=== PATIENT | male | born 1960 | race Caucasian/White ===

== ENCOUNTER 2016-09-19 12:21 | Outpatient (CLI) | payer MEDICARE ==
[~2016-09-19] VITALS: Ht 182.9 cm; Wt 131.8 kg
--- NOTE | ~2016-09-19 | HEMODYNAMI ---
PATIENT:ELIANE GIBSON MEDICAL RECORD: [id number] : 56 LOCATION:DPhanCAT ADMISSION DATE: 09/19/16 Generatedon:09/19/201615:04 Patient name: ELIANE GIBSON Patient #: [id number] : 1960 Date of study: 09/19/2016 Page: Of Hemodynamic Procedure Report Patient Data Patient Demographics Procedure consent was obtained First Name: ELIANE Gender: Male Last Name: ARTHUR : 1960 Middle Initial: A Age: 55 year(s) Patient #: [id number] Race: SSN: [id number] Additional ID: [id number] Contact details Address: [address] [place] [address] State: [place] City: [facility] Zip code: [address] Admission Admission Data Admission Date: 09/19/2016 Admission Time: 12:21 Arrival Date: 09/19/2016 Arrival Time: 14:00 Admit Source: Other Insurance Payor: Medicare Height (in.): 72 BSA: 2.52 (m2) Height (cm.): 182.88 BMI: 40.14 (kg/m2) Weight (lbs.): 296 Weight (kg.): 134.26 Lab Results Lab Result Date: 09/19/2016 Lab Result Time: 0:00 Biochemistry Name Units Result Min Max BUN mg/dl 14 --(--*-)-- 7 18 Creatinine mg/dl 0.9 --(-*--)-- 0.6 1.3 CBC Name Units Result Min Max Hemoglobin g/dl 14.3 --(*---)-- 13.5 17.5 Procedure Procedure Types Cath Procedure Diagnostic Procedure [facility] w/Coronaries FFR/IVUS Intra-Coronary IVUS Initial Miscellaneous Procedures Moderate Sedation up to 15 minutes Procedure Description Procedure Date Procedure Date: 09/19/2016 Procedure Start Time: 14:47 Procedure End Time: 15:01 Procedure Staff Name Function Armani Torres MD Performing Physician Estephania Dominguez RT Scrub Weston Espinoza RN Nurse Makenzie Wren RT Monitor Indication Angina Procedure Data Cath Procedure Fluoroscopy Diagnostic fluoroscopy Total fluoroscopy Time: 2.6 time: 2.6 min min Diagnostic fluoroscopy Total fluoroscopy dose: 826 dose: 826 mGy mGy Contrast Material Contrast Material Type Amount (ml) Isovue 370 77 Entry Location Entry Primary Successful Side Size Upsize Upsize Entry Closure La ccessful Closure Location (Fr) 1 (Fr) 2 (Fr) Remarks Device Remarks Radial Right 6 Fr Mechanical artery Short Compression Estimated blood loss: 5 ml Diagnostic catheters Device Type Used For End Catheter Placement Cordis RBL 4 catheter (NO Multi-vessel CHARGE) Angiography Procedure Complications No complications Procedure Medications Medication Administration Route Dosage Oxygen NC 2 l/min Lidocaine 2% added to field 20 Heparin Flush Bag added to field 2 bags (1000units/500ml NS) 0.9% NaCl I.V. 100 ml/hr Versed I.V. 2 mg Fentanyl I.V. 100 mcg Versed I.V. 2 mg Fentanyl I.V. 100 mcg Versed I.V. 2 mg Fentanyl I.V. 100 mcg Radial Cocktail I.A. 1 syringe (Verapomil 2mg/Nitro 400mcg/Heparin 1500units) Hemodynamics Rest BSA: 2.52 (m2) HGB: 14.3 (g/dl) O2 Consumption: Estimated: 297.02 (ml/min) O2 Co nsumption indexed: Estimated:117.87 (ml/min/m) Heart Rate: 69 (bpm) Pressure Samples Time Site Value (mmHg) Purpose Heart Use Rate(bpm) 14:49 LV 316/130,265 Snapshot 81 Snapshots Pre Cath Intra NCS Post Cath Vital Signs Time Heart Resp SPO2 NIBP Rhythm Pain Sedation Rate (ipm) (%) (mmHg) Status Level (bpm) 14:39:18 66 18 97 127/78(94) NSR 0 (11) 10(A) , No pain 14:43:47 74 13 95 120/72(96) NSR 0 (11) 10(A) , No pain 14:48:13 77 15 96 116/71(88) NSR 0 (11) 10(A) , No pain 14:52:39 82 18 93 114/66(93) NSR 0 (11) 10(A) , No pain 14:57:01 81 18 95 115/69(92) NSR 0 (11) 10(A) , No pain 15:01:26 77 16 94 108/70(93) NSR 0 (11) 10(A) , No pain Medications Time Medication Route Dose Verified Delivered Reason Notes Effectiveness by by 14:39:08 Oxygen NC 2 l/min Armaniclif Ontiveros used for Brian Espinoza RN procedure 14:39:17 Lidocaine 2% added 20ml Armani Lomeli for local to vial Brian Torres MD anesthetic field 14:39:23 Heparin Flush added 2 bags Armani Lomeli used for Bag to Brian Torres MD procedure (1000units/500ml field NS) 14:39:41 0.9% NaCl I.V. 100 Armani Ontiveros Per ml/hr Brian Espinoza RN physician 14:44:20 Versed I.V. 2 mg Armani Ontiveros for sedation Brian Espinoza RN 14:44:27 Fentanyl I.V. 100 mcg Armani Ontiveros for sedation Brian Espinoza RN 14:49:36 Radial Cocktail I.A. 1 Armani Lomeli for (Verapomil syringe Brian Torres MD vasodilation 2mg/Nitro 400mcg/Heparin 1500units) 14:50:38 Versed I.V. 2 mg Armani Ontiveros for sedation Brian Espinoza RN 14:50:42 Fentanyl I.V. 100 mcg Armani Ontiveros for sedation Brian Espinoza RN 14:53:59 Versed I.V. 2 mg Armani Ontiveros for sedation Brian Espinoza RN 14:54:03 Fentanyl I.V. 100 mcg Armani Ontiveros for sedation Brian Espinoza RN Procedure Log Time Note 14:15:31 Weston Espinoza RN sent for patient. Start room use. 14:24:18 Informed consent obtained and on chart 14:24:21 Diagnostic Cath Status : Elective 14:24:43 Indication : Angina 14:25:30 Admit Source: Other 14:25:35 Patient Height : 182.88 inches 14:25:48 Patient Weight : 134.26 lbs 14:26:08 Arrival Date: 09/19/2016 2:00:00 PM 14:26:15 Insurance Payor : Medicare 14:37:27 Lab Result : Hemoglobin 14.3 g/dl 14:37:27 Lab Result : BUN 14 mg/dl 14:37: Lab Result : Creatinine 0.9 mg/dl 14:37:39 Time tracking: Regular hours 14:37:43 Plan of Care:Hemodynamics will remain stable., Cardiac rhythm will remain stable., Comfort level will be maintained., Respiratory function will remain adequate., Patient/ family verbilizes understanding of procedure., Procedure tolerated without complication., Recovers from procedure without complications.. 14:37:50 Patient received from Pre/Post Procedure Room to CCL 2 Alert and oriented. Tansferred to table in Supine position. 14:37:51 Warm blankets applied, and anita hugger turned on for patient comfort. 14:37:51 Correct patient and procedure confirmed by team. 14:37:52 ECG and BP/O2 sat monitors applied to patient. 14:37:52 Vital chart was started 14:37:53 Baseline sample Acquired. 14:38:00 Rhythm: sinus rhythm 14:38:02 Full Disclosure recording started 14:38:28 H&P Date Dictated: 09/17/2016 Within 30 days and on chart., H&P Addendum completed by physician on day of procedure. (MUST COMPLETE FOR ALL OUTPATIENTS). 14:38:29 Pre-procedure instructions explained to patient. 14:38:30 Pre-op teaching completed and patient verbalized understanding. 14:38:31 Family in waiting room. 14:38:32 Patient NPO since Midnight. 14:38:36 Is the patient allergic to Iodine/contrast media? No. 14:38:39 Was the patient premedicated? No 14:38:43 Is patient on blood thinner?No 14:38:45 Patient diabetic? Yes. 14:38:46 If diabetic: On Metformin? Yes 14:38:52 If on Metformin: Last Dose? 09/18/2016 14:39:02 Previous problem with sedation/anesthesia? No ? 14:39:03 Snore? Yes 14:39:04 Sleep apnea? Yes 14:39:05 Deviated septum? No 14:39:06 Opens mouth fully? Yes 14:39:07 Sticks out tongue? Yes 14:39:08 Oxygen 2 l/min NC was given by Weston Espinoza RN; used for procedure; 14:39:17 Lidocaine 2% 20ml vial added to field was given by Armani Torres MD; for local anesthetic; 14:39:23 Heparin Flush Bag (1000units/500ml NS) 2 bags added to field was given by Armani Torres MD; used for procedure; 14:39:41 0.9% NaCl 100 ml/hr I.V. was given by Weston Espinoza RN; Per physician; 14:39:58 Airway obstruction? Yes asthma 14:40:01 Dentures? No ? 14:40:16 Pre procedure: right dorsailis pedis pulse 1+ Palpable, but thready & weak; easily obliterated 14:40:19 Patient pain scale 0/10 ?. 14:40:27 IV patent on arrival in left hand with 0.9% NaCl at [facility]. 14:40:30 Lab results completed and on chart. 14:40:35 Right Radial & Right Groin area was prepped with chlora-prep and draped in sterile fashion 14:40:36 Alarms reviewed by R. N. 14:40:36 Sharps counted by scrub and verified by R.N. 14:43:42 Physician arrived 14:43:43 --------ALL STOP TIME OUT------ 14:43:43 Final Timeout: patient, procedure, and site verified with staff and physician. All members of the team are in agreement. 14:43:46 Right Radial & Right Groin site verified by team. 14:43:48 Physical assessment completed. ASA score P 2 - A patient with mild systemic disease as per Armani Torres MD. 14:43:51 Sedation plan: IV Moderate Sedation Versed, Fentanyl 14:44:09 Use device set Radial Dx 14:44:11 Acist Syringe opened to sterile field. 14:44:11 Medline Cath Pack opened to sterile field. 14:44:12 Bag Decanter opened to sterile field. 14:44:12 Terumo 6Fr Slender Glidesheath opened to sterile field. 14:44:13 St Venkat 260cm J .035 wire opened to sterile field. 14:44:13 Acist Hand Control opened to sterile field. 14:44:14 Acist Manifold opened to sterile field. 14:44:14 Tegaderm 4 x 4 opened to sterile field. 14:44:20 Versed 2 mg I.V. was given by Weston Espinoza RN; for sedation; 14:44:27 Fentanyl 100 mcg I.V. was given by Weston Espinoza RN; for sedation; 14:45:25 Zero performed for pressure channel P1 14:45:41 Zero performed for pressure channel P1 14:46:25 Procedure started. 14:47:28 Local anesthetic to right radial artery with Lidocaine 2% by Armani Torres MD.INITIAL ACCESS ONLY 14:48:01 A 6 Fr Short sheath was inserted into the Right Radial artery 14:49:09 A Twitt2go RBL 4 catheter (NO CHARGE) was advanced over the wire and used for Multi-vessel Angiography. 14:49:36 Radial Cocktail (Verapomil 2mg/Nitro 400mcg/Heparin 1500units) 1 syringe I.A. was given by Armani Torres MD; for vasodilation; 14:49:57 LV hemodynamics recorded. 14:49:58 LV gram done using GREER 14:50:03 Injector settings: Ml/sec: 5, Volume: 15, 14:50:08 EF : 60 % 14:50:10 LCA angiography performed. 14:50:12 Injector settings: Ml/sec: 3, Volume: 6, 14:50:38 Versed 2 mg I.V. was given by Weston Espinoza RN; for sedation; 14:50:42 Fentanyl 100 mcg I.V. was given by Weston Espinoza RN; for sedation; 14:51:35 RCA angiography performed. 14:51:40 Injector settings: Ml/sec: 3, Volume: 6, 14:53:01 Catheter removed. 14:53:20 [place] IVUS Catheter opened to sterile field. 14:53:21 Medtronic Launcher 6Fr AR 2.0 guide catheter opened to sterile field. 14:53:24 Dashbook BasixCompak Inflation Kit opened to sterile field. 14:53:30 [place] J 300cm 0.014 guide wire opened to sterile field. 14:53:34 Catheter removed. 14:53:34 Proceeding to intervention. 14:53:48 6 Fr ar 2 guide catheter was inserted over the wire 14:53:54 whisper wire advanced. 14:53:56 Wire advanced across lesion. 14:53:59 Versed 2 mg I.V. was given by Weston Espinoza RN; for sedation; 14:54:03 Fentanyl 100 mcg I.V. was given by Weston Espinoza RN; for sedation; 14:54:37 IVUS catheter advanced over wire. 14:54:40 IVUS pass to RCA lesion performed. 14:56:26 IVUS catheter removed over wire. 14:56:33 Wire removed. 14:56:34 Guide catheter removed. 14:58:30 Terumo TR Band Large opened to sterile field. 14:58:45 Sheath removed intact; hemostasis achieved with Mechanical Compression to the Right Radial artery. 14:59:06 Procedure ended.(Physican Out) 14:59:31 Fluoroscopy time 02.60 minutes. 14:59:37 Fluoroscopy dose: 826 mGy 14:59:37 Flurop Dose total: 826 14:59:52 Contrast amount:Isovue 370 77ml. 14:59:56 Sharps counted by scrub and verified by R.N. 14:59:59 TR band inflated with 10cc of air. 15:00:01 Insertion/operative site no bleeding no hematoma. 15:00:10 Post right radial artery:stable 15:00:14 Post Procedure Pulses reassessed and unchanged 15:00:17 Post procedure rhythm: unchanged. 15:00:20 Estimated blood loss: 5 ml 15:00:21 Post procedure instruction explained to patient.Patient verbalizes understanding. 15:00:21 Patient needs reinforcement of post procedure teaching. 15:00:30 Procedure type changed to Cath procedure, Diagnostic procedure, LHC, LHC w/Coronaries, FFR/IVUS, Intra-Coronary IVUS Initial, Miscellaneous Procedures, Moderate Sedation up to 15 minutes 15:00:43 Procedure and supply charges have been captured, reviewed, submitted and are correct. 15:00:54 Procedure Complication : No complications 15:00:58 Vital chart was stopped 15:00:58 See physician's report for complete and final results. 15:01:02 Report given to Pre/Post Procedure Room. 15:01:05 Patient transfered to Pre/Post Procedure Room with Stretcher. 15:01:08 Procedure ended. 15:01:08 Full Disclosure recording stopped 15:01:11 End room use (Document Last) Device Usage Item Name Manufacture Quantity Catalog Hospital Part Current Minimal Lot# / Number Charge Number Stock Stock Serial# Code Acist Acist 1 [id number] 008500 [id number] 20 [employer] Medline Cardinal 1 [id number] 690644 56331 671909 5 Cath Pack Health Bag Microtek 1 2002S 784604 96576 318003 5 Decanter [employer] Inc. Terumo 6Fr Terumo 1 [id number] 074472 235450 475239 [address] Ven[address] St Venkat 1 725085 394732 119746 978007 30 260cm J .035 wire Acist Hand Acist 1 56136 307750 856563 401309 5 Control Medical Systems Inc Acist Acist 1 19158 127417 515435 035800 5 Manifold Medical Systems Inc Tegaderm 4 3M 1 1626W 129375 438852 174081 5 x 4 Cordis RBL Cardinal 1 [id number] 977833 290837 5 4 catheter Health (NO CHARGE) [place] 1 [id number] 398498 422168 192393 8 [place] IVUS Catheter Medtronic Medtronic 1 [id number] 360476 48490 294191 1 Launcher 6Fr AR 2.0 guide catheter Merit Merit 1 [id number] 812628 316848 718633 15 [facility] Medical Inflation Kit [place] 1 [id number] 169798 455138 180609 5 Whisper J Vascular 300cm 0.014 guide wire Terumo TR Terumo 1 [id number] 257569 357075 40 Band Large Signature Audit Lorimor Stage Time Signature Unsigned Intra-Procedure 09/19/2016 Makenzie Wren 3:04:53 PM RT(R) Signatures Monitor : Makenzie Wren RT Signature : Date : Time : [facility] [address] [place], [place] [address]
[~2016-09-19 12:21] MED LIST: AMARYL; AMBIEN10 MG PO; AXIRON30 MG/1.5 IM; BENICAR20 MG PO; ENBREL25 MG/0.5 SQ; FOLIC ACID1 MG PO; GLUCOPHAGE1000 MG PO; HYDROCHLOROTH12.5 M1 PO; LEXAPRO20 MG PO; NEURONTIN800 MG PO; NORVASC5 MG PO; OXYCONTIN80 MG PO; PERCOCET 10/3251 TA1 PO; PREDNISONE10 MG PO; PROVENTIL HFA6.7 GM INH; VITAMIN D250000 UNIT PO; XANAX1 MG PO
[2016-09-19 13:40] VITALS: BP 141/66; Ht 182.9 cm; Wt 131.8 kg
[2016-09-19 14:01] LABS: BASOPHILS 0.4 % (0.0-2.0); EOSINOPHILS 2.8 % (0-7); HEMATOCRIT 43.3 % (42.0-54.0); HEMOGLOBIN 14.3 g/dL (13.5-17.5); IMMATURE GRANULOCYTES 0.5 % (0-5); LYMPHOCYTES 23.2 % (15-50); MCH 32.8 pg (26.0-34.0); MCV 99.3 fL (80.0-100.0); MEAN PLATELET VOLUME 11.2 fL (7.4-10.4); MONOCYTES 8.3 % (2-11); NEUTROPHILS 64.8 % (40-80); PLATELET COUNT 160 10x3/uL (130-400); RBC 4.36 10x6/uL (4.20-6.10); RDW 13.5 % (11.5-14.5)
[2016-09-19 14:14] LABS: CALC OSMOLALITY 280 mosm/kg (275-300); CALCIUM 9.5 mg/dL (8.5-10.1); CARBON DIOXIDE 29.8 mmol/L (21.0-32.0); CHLORIDE - SERUM 99 mmol/L (98-107); CREATININE - SERUM 0.9 mg/dL (0.6-1.3); GLUCOSE 198 mg/dL (74-106); SODIUM 137 mmol/L (136-145); UREA NITROGEN 14 mg/dL (7-18); eGFR NON AFRICAN AMERICAN > 90 mL/min (90-120)
--- NOTE | 2016-09-19 16:03 | NUR ---
1520 LYING IN BED RESTING WITH EYES CLOSED. NSR RATE 67 W NO C/O CHEST PAIN. PULSES PALP X 4. R WRIST TR BAND C/D/I WITH NO HEMATOMA OR BLEEDING. AT BEDSIDE.
--- NOTE | 2016-09-19 16:56 | NUR ---
1550 SITTING UP IN BED EATING TURKEY SANDWICH WITH ASSIST FROM . URINATED VIA URINAL. VITALS ALL WNL. 1640 2CC AIR REMOVED FROM R WRIST TR BAND. WILL MONITOR CLOSELY FOR BLEEDING.
--- NOTE | 2016-09-19 17:03 | NUR ---
PIV REMOVED FROM LEFT HAND WITH BANDAID APPLIED. ANOTHER 2CC AIR REMOVED FROM R WRIST TR BAND. UP TO BED TO DRESS WITH ASSIST FROM .
--- NOTE | 2016-09-19 17:22 | NUR ---
TR BAND REMOVED FROM R WRIST WITH TEGADERM AND 2X2 APPLIED TO WRIST. D/C INSTRUCTIONS DISCUSSED WITH PATIENT AND AT BEDSIDE. WHEELED OUT VIA WHEELCHAIR BY CATH TEAM.
--- NOTE | 2016-10-01 10:08 | OP ---
PATIENT NAME: ELIANE GIBSON MEDICAL RECORD: [id number] :56 LOCATION:D.CAT ADMISSION DATE: SURGEON: NINOSKA LEAHY MD DATE OF OPERATION: 09/19/2016 PROCEDURES: 1. Left heart catheterization. 2. Selective coronary angiography. 3. Left ventriculogram. 4. Intravascular ultrasound, RCA. PROCEDURE PERFORMED: After consent was obtained and after detailed explanation of risks, benefits as well as alternative therapies, the patient elected to proceed with angiogram and heart catheterization. The right radial area was prepped and draped in normal sterile fashion. The right radial artery was cannulated via modified Seldinger technique with placement of 5-Yoruba sheath. All catheters exchanged through this sheath. FINDINGS: Left ventriculogram was performed in the standard 30-degree GREER view, reveals good cardiac wall motion throughout all segments. Overall ejection fraction estimated at 55%-60%. SELECTIVE CORONARY ANGIOGRAPHY: 1. Left main is with no significant angiographic disease. 2. Left anterior descending has moderate irregularities, but no flow-limiting stenosis. 3. The left circumflex shows moderate irregularities, but no flow-limiting stenosis. 4. The right coronary artery has a questionable stenosis proximally; however, intravascular ultrasound revealed this is no greater than 20%. OVERALL IMPRESSION: Minimal coronary artery disease is present. No flow-limiting stenosis. Continue medical management of the coronary artery disease and cardiac risk factors. TRANSINT:[id number] Voice Confirmation ID: [id number] DOCUMENT ID: [id number] NINOSKA LEAHY MD at 1008 CC: [id number] DICTATION DATE: 09/19/16 1500 [facility] NURSE SUPERVISOR: 09/19/16 1826 DEP CLI 09/19/16 [facility] [address] [place] [address]
== END 2016-09-19 17:27 | disposition home or self-care (01) ==
LOC: D.CATH 12:21
PROVIDERS: Internal Medicine Interventional Cardiology
DX: I25.10 Atherosclerotic heart disease of native coronary artery without angina pectoris (principal)

== ENCOUNTER 2017-07-23 15:20 | Emergency (ER) | payer MEDICARE ==
[2016-09-19 13:40] VITALS: BMI 39.4
[2017-07-23 17:22] LABS: BASOPHILS 0.2 % (0-2); EOSINOPHILS 1.6 % (0-7); HEMATOCRIT 41.3 % (42.0-54.0); HEMOGLOBIN 13.7 g/dL (13.5-17.5); IMMATURE GRANULOCYTES 0.7 % (0-5); LYMPHOCYTES 24.5 % (15-50); MCH 32.5 pg (26.0-34.0); MCHC 33.2 g/dL (31.0-37.0); MCV 97.9 fL (80.0-100.0); MEAN PLATELET VOLUME 11.1 fL (7.4-10.4); MONOCYTES 8.6 % (2-11); NEUTROPHILS 64.4 % (40-80); PLATELET COUNT 176 10x3/uL (130-400); RBC 4.22 10x6/uL (4.20-6.10); RDW 13.2 % (11.5-14.5)
[2017-07-23 17:38] LABS: ALBUMIN 3.9 g/dL (3.4-5.0); ANION GAP 11.6 mmol/L (8-16); BILIRUBIN - TOTAL 0.27 mg/dL (0.2-1.3); CALCIUM 9.7 mg/dL (8.5-10.1); CREATININE - SERUM 1.3 mg/dL (0.6-1.3); POTASSIUM - SERUM 4.6 mmol/L (3.5-5.1); PROTEIN - SERUM 7.4 g/dL (6.4-8.2)
== END 2017-07-23 20:10 | disposition home or self-care (01) ==
LOC: D.ER 15:20
PROVIDERS: Emergency Medicine
DX: E11.40 Type 2 diabetes mellitus with diabetic neuropathy, unspecified (principal); Z79.4 Long term (current) use of insulin; B35.3 Tinea pedis; L03.115 Cellulitis of right lower limb; I10 Essential (primary) hypertension

== ENCOUNTER 2017-09-26 11:46 | Inpatient (IN) | payer MEDICARE ==
[~2017-09-26] VITALS: Ht 182.9 cm; Wt 120.0 kg
--- NOTE | ~2017-09-26 | CN ---
PATIENT NAME:ELIANE GIBSON MEDICAL RECORD: [id number] : 56 LOCATION:D.MS [id number] ADMIT DATE: 09/26/17 ACCOUNT: [id number] CONSULTING PHYSICIAN: NINOSKA LEAHY MD REFERRING PHYSICIAN: KAYLEN BARAHONA MD DATE OF CONSULTATION: 10/01/2017 CARDIOLOGY CONSULTATION ADMITTING DIAGNOSES: 1. Bacteremia. 2. Recent toe amputation. 3. Diabetic foot ulcer. 4. Diabetes. 5. Hypertension. 6. Chronic obstructive pulmonary disease. 7. Smoking history. 8. Rheumatoid arthritis, on prednisone. 9. Peripheral vascular disease. HISTORY OF PRESENT ILLNESS: This is a gentleman admitted with a diabetic foot ulcer, underwent third toe amputation for possible osteoarthritis, who has persistent bacteremia. He does have a cellulitis who is being treated with antibiotics. We were asked to comment on possible endocarditis. He had an echocardiogram yesterday. Repeat echocardiogram has excellent visualization of all the valves with no evidence of vegetations. PHYSICAL EXAMINATION: GENERAL APPEARANCE: Well-nourished, well-developed, appears stated age. Level of distress, comfortable. PSYCHIATRIC: Mental status, alert, normal affect. Orientation, oriented to time, place and person. EYES: Lids and conjunctiva, noninjected. No discharge, no pallor. ENT: Lips, teeth, gums, normal dentition. Oropharynx, no cyanosis, no pallor. NECK: Carotid arteries, bilateral normal upstroke, no bruits, no thrills. JUGULAR VEINS: No jugular venous pressure or distention. CERVICAL LYMPH NODES: Nontender, nonenlarged. THYROID: Not enlarged. Nontender. No nodules. LUNGS: Respiratory effort, unlabored. CHEST: Normal curvature. No thoracic deformity. No chest wall tenderness. Percussion, resonant. Auscultation, clear. No wheezes, no rales, no rhonchi. CARDIOVASCULAR: Precordial exam, nondisplaced. No heaves or pericardial thrills. Rate and rhythm, regular. Heart sounds, normal S1, normal S2. No S3, no gallop, no rub. Systolic murmur, not heard. Diastolic murmur, not heard. EXTREMITIES: No cyanosis, no edema. Peripheral pulses, full and equal in all extremities, except as noted. No bruits appreciated. ABDOMEN: Soft, nondistended. Normal aorta. No bruit. Nontender. No masses. Liver, nontender, no hepatomegaly. Spleen, nontender, no splenomegaly. MUSCULOSKELETAL: No joint tenderness. No joint swelling. No erythema. NEUROLOGICAL: Normal gait, normal strength, normal tone. SKIN: Warm and dry. OVERALL IMPRESSION: Transthoracic echo with excellent images. No evidence of any valvular abnormalities, all 4 valves are well visualized. I do not think transesophageal echocardiogram will add anything at this point. CONSULT REPORT [id number] ELIANE GIBSON TRANSINT:[id number] Voice Confirmation ID: [id number] DOCUMENT ID: [id number] NINOSKA LEAHY MD at 1202 CC: [id number] DICTATION DATE: 10/01/17 1210 GLAZING MACHINE OPERATOR: 10/01/17 1229 ADM IN [place] [id number] [place] [address]
--- NOTE | ~2017-09-26 | HEMODYNAMI ---
PATIENT:ELIANE GIBSON MEDICAL RECORD: [id number] : 56 LOCATION:D.MS [facility]2 ADMISSION DATE: 09/26/17 Generatedon:10/09/201714:08 Patient name: ELIANE GIBSON Patient #: [id number] : 1960 Date of study: 10/09/2017 Page: Of Hemodynamic Procedure Report Patient Data Patient Demographics Procedure consent was obtained First Name: ELIANE Gender: Male Last Name: ARTHUR : 1960 Middle Initial: A Age: 56 year(s) Patient #: [id number] Race: SSN: [id number] Additional ID: [id number] Contact details Address: [address] [place] [address] State: [place] City: [facility] Zip code: [address] Admission Admission Data Admission Date: 09/26/2017 Admission Time: 11:46 Room #: D.2202 Procedure Procedure Types Cath Procedure Peripheral Cath Diagnostic Procedure Venography Extremity Procedure Description Procedure Date Procedure Date: 10/09/2017 Procedure Start Time: 13:26 Procedure Staff Name Function Abisai Amin MD Performing Physician Elvis Day RT Monitor Ashwini Sawyer RT Scrub Sara Conte RN Nurse Procedure Data Cath Procedure Fluoroscopy Diagnostic fluoroscopy Total fluoroscopy Time: 2.4 time: 2.4 min min Diagnostic fluoroscopy Total fluoroscopy dose: 4.7 dose: 4.7 mGy mGy Contrast Material Contrast Material Type Amount (ml) Isovue 300 610 Entry Location Entry Primary Successful Side Size Upsize Upsize Entry Closure Succes sful Closure Location (Fr) 1 (Fr) 2 (Fr) Remarks Device Remarks Femoral Left 5 Fr artery Diagnostic catheters Device Type Used For End Catheter Placement Merit ULTRA BOLUS FLUSH 5Fr 65CM catheter ([id number]) Procedure Medications Medication Administration Route Dosage Fentanyl I.V. 50 mcg Versed I.V. 2 mg Versed I.V. 2 mg Fentanyl I.V. 50 mcg Hemodynamics Rest Heart Rate: 94 (bpm) Snapshots Pre Cath Intra NCS Post Cath Vital Signs Time Heart Resp SPO2 etCO2 NIBP Rhythm Pain Sedation Rate (ipm) (%) (mmHg) (mmHg) Status Level (bpm) 13:08:50 90 12 90 37 Measuring NSR 0 (11) 10(A) , No pain 13:09:19 92 10 90 35.5 133/74(89) NSR 0 (11) 10(A) , No pain 13:13:37 91 17 90 27.9 120/73(99) NSR 0 (11) 10(A) , No pain 13:17:55 94 7 93 35.4 124/72(88) NSR 0 (11) 9(A) , No pain 13:22:15 94 10 95 21.9 111/62(91) NSR 0 (11) 9(A) , No pain 13:26:29 92 6 91 40 129/68(91) NSR 0 (11) 9(A) , No pain 13:30:51 91 11 93 37 128/68(93) NSR 0 (11) 8(A) , No pain 13:35:09 95 16 93 40.8 126/73(96) NSR 0 (11) 8(A) , No pain 13:39:29 95 16 93 40.8 131/70(85) NSR 0 (11) 8(A) , No pain 13:43:54 92 10 94 40.8 117/65(79) NSR 0 (11) 8(A) , No pain 13:48:10 90 13 93 36.2 131/70(86) NSR 0 (11) 8(A) , No pain 13:52:32 94 17 94 38.5 128/64(85) NSR 0 (11) 8(A) , No pain 13:56:56 91 16 95 34.7 127/61(87) NSR 0 (11) 8(A) , No pain 14:01:16 91 14 95 27.1 137/73(97) NSR 0 (11) 8(A) , No pain 14:05:40 92 15 40.8 130/71(99) NSR 0 (11) 8(A) , No pain Medications Time Medication Route Dose Verified Delivered Reason Notes Effectivene ss by by 13:25:03 Versed I.V. 2 mg Abisai Ruiz for Fully awake @ Eloisa Conte RN sedation 13:36:29 13:25:48 Fentanyl I.V. 50 Abisai Ruiz for Fully awake @ mcg Eloisa Conte RN sedation 13:36:26 13:35:59 Versed I.V. 2 mg Abisai Ruiz for Eloisa Conte RN sedation 13:36:13 Fentanyl I.V. 50 Abisai Ruiz for mcg Eloisa Conte RN sedation Procedure Log Time Note 12:41:01 Elvis Shay RT (R) (CV) sent for patient. Start room use. 12:41:14 Use device set IR Diagnostic 12:41:16 Bag Decanter (2002S) opened to sterile field. 12:41:16 Sterile Angiographic Pack opened to sterile field. 12:41:17 ACIST Manifold (49824) opened to sterile field. 12:41:18 ACIST Hand Control (14466) opened to sterile field. 12:41:19 ACIST Syringe (72117) opened to sterile field. 12:41:28 Time tracking: Regular hours 12:41:32 Plan of Care:Hemodynamics will remain stable., Cardiac rhythm will remain stable., Comfort level will be maintained., Respiratory function will remain adequate., Patient/ family verbilizes understanding of procedure., Procedure tolerated without complication., Recovers from procedure without complications.. 12:41:37 Patient received from Med/Surg to IR Alert and oriented. Tansferred to table in Supine position. 12:41:38 Warm blankets applied, and anita hugger turned on for patient comfort. 12:41:39 Correct patient and procedure confirmed by team. 12:41:41 Signed procedure consent form obtained from patient. 12:41:42 ECG and BP/O2 sat monitors applied to patient. 12:41:44 Full Disclosure recording started 12:41:45 - 12:41:49 H&P Date Dictated: 10/09/2017 Within 30 days and on chart.. 12:41:52 Pre-procedure instructions explained to patient. 12::52 Pre-op teaching completed and patient verbalized understanding. 12:41:54 Family in waiting room. 12:41:56 Patient NPO since Midnight. 12:42:00 Is the patient allergic to Iodine/contrast media? No. 12:42:05 Is patient on blood thinner?No 12:42:07 Patient diabetic? Yes. 12:42:09 If diabetic: On Metformin? Yes 12:42:10 - 12:42:10 ----Pre-sedation anethsthesia assessment.---- 12:42:14 Previous problem with sedation/anesthesia? No ? 12:42:16 Snore? Yes 12:42:18 Sleep apnea? Yes 12:42:20 Deviated septum? No 12:42:22 Opens mouth fully? Yes 12:42:24 Sticks out tongue? Yes 12:42:35 Airway obstruction? Yes asthma 12:42:37 Dentures? No ? 12:53:42 Pre procedure: right dorsailis pedis pulse Other 12:53:48 Pre procedure: left dorsailis pedis pulse Doppler 12:53:52 Pre procedure: right posterior tibial pulse Doppler 12:54:02 Pre procedure: left posterior tibial pulse Doppler 12:54:14 IV patent on arrival in right forearm with 0.9% NaCl at [facility]. 12:54:15 Sharps counted by scrub and verified by R.N. 12:54:16 Alarms reviewed by R. N. 12:54:23 Bilateral groins area was prepped with chlora-prep and draped in steril e fashion 13:07:00 Vital chart was started 13:13:57 Baseline sample Acquired. 13:25:03 Versed 2 mg I.V. was administered by Sara Conte RN; for sedation; 13:25:48 Fentanyl 50 mcg I.V. was administered by Sara Conte RN; for sedation; 13:25:59 Physician arrived 13:26:00 --------ALL STOP TIME OUT------ 13::01 Final Timeout: patient, procedure, and site verified with staff and physician. All members of the team are in agreement. 13:26:03 Bilateral groins site verified by team. 13:26:11 Sedation plan: IV Moderate Sedation Medication:Versed, Fentanyl 13:26:30 Procedure started. 13:26:35 Local anesthetic to left femerol artery with Lidocaine 1% by Abisai Amin MD.INITIAL ACCESS ONLY 13::00 A 5 Fr sheath was inserted into the Left Femoral artery 13::23 Micropuncture VSI 4FR kit opened to sterile field. 13::23 SHEATH 5FR [place] (SWF095) opened to sterile field. 13::24 DOC .035 wire (G38005) opened to sterile field. 13::24 TUBING Contrast Injection High Pressure (IGK614K) opened to sterile field. 13::25 PERCUTANEOUS ENTRY 19GA needle opened to sterile field. 13::27 A Cellay ULTRA BOLUS FLUSH 5Fr 65CM catheter ([id number]) was advanced over the wire and used for . 13:35:59 Versed 2 mg I.V. was administered by Sara Conte RN; for sedation; 13:36:13 Fentanyl 50 mcg I.V. was administered by Sara Conte RN; for sedation; 13:36:26 Effectiveness of Fentanyl delivered @ 13:25:48 is: Fully awake 13:36:29 Effectiveness of Versed delivered @ 13:25:03 is: Fully awake 13:43:37 GLIDE WIRE ANGLE 180cm (TA8383) opened to sterile field. 13:43:45 TORQUE DEVICE PLASTIC .038 ( TD01) opened to sterile field. 13:46:31 GLIDE CATHETER 5FR STRAIGHT 65cm (CG505) opened to sterile field. 13:55:26 ANGIOSEAL-VIP PLUS 6 FR opened to sterile field. 13:56:16 ANGIOSEAL-VIP PLUS 6 FR opened to sterile field. 13:56:23 Procedure ended.(Physican Out) 14:05:15 Fluoroscopy time 02.40 minutes. 14:05:20 Fluoroscopy dose: 4.7 mGy 14:05:20 Flurop Dose total: 4.7 14:05:24 Contrast amount:Isovue 300 610ml. 14:05:26 Sharps counted by scrub and verified by R.N. 14:05:29 Insertion/operative site no bleeding no hematoma. 14:05:33 Post-op/insertion site Left Femoral artery dressed using a 4 x 4 and Tegaderm. 14:05:38 Post left femerol artery:stable 14:05:40 Post Procedure Pulses reassessed and unchanged 14:05:41 Post procedure instruction explained to patient.Patient verbalizes understanding. 14:05:43 Procedure and supply charges have been captured, reviewed, submitted an d are correct. 14:07:29 Report given to Med/Surg. 14:07:34 Patient transfered to Med/Surg with Bed. 14:08:01 Vital chart was stopped Device Usage Item Name Manufacture Quantity Catalog Number Hospital Part Current Ca nimal Lot# / Charge Number Stock Stock Serial# Code Bag Decanter Microtek 1 [id number] 33115 924281 5 () Medical Inc. Sterile Cardinal 1 [id number] 229657 752980 5 Angiographic Health Pack ACIST Manifold Acist 1 24520 448367 675700 662658 5 (47126) Medical Systems Inc ACIST Hand Acist 1 73916 960527 279754 316225 5 Control Medical (53753) Systems Inc ACIST Syringe Acist 1 11837 659649 382856 030616 20 (14501) Medical Systems Inc Micropuncture VSI VASCULAR 1 7266V 677900 440116 5 VSI 4FR kit SOLUTIONS SHEATH 5FR Terumo 1 LVH908 470608 449887 169583 40 [place] (DLP476) DOC .035 wire Cook Medical 1 D43075 209764 663008 5 2216526 (P25649) TUBING Merit 1 ULB765B 209190 922438 467848 5 Contrast Medical Injection High Pressure (EKL922G) PERCUTANEOUS Cook Medical 1 A66411 354296 797402 5 2112702 ENTRY 19GA needle Merit ULTRA Merit 1 [id number] 288898 582062 5 BOLUS FLUSH Medical 5Fr 65CM catheter ([id number]) GLIDE WIRE Terumo 1 OU5473 791506 468574 995542 5 ANGLE 180cm (GP4457) TORQUE DEVICE Nerstrand 1 TD01 346451 364331 657447 5 PLASTIC .038 ( Scientific TD01) GLIDE CATHETER Terumo 1 CG505 599966 106189 5 5FR STRAIGHT 65cm (CG505) ANGIOSEAL-[facility] Venkat 2 891075 210657 807584 5 2455057 PLUS 6 FR Signature Audit [place] Stage Time Signature Unsigned Intra-Procedure 10/09/2017 Elvis 2:07:59 PM [place] RT (R) (CV) Signatures Monitor : Elvis Signature : Shay RT Date : Time : [address] [address]
--- NOTE | ~2017-09-26 | OP ---
PATIENT NAME: ELIANE GIBSON MEDICAL RECORD: [id number] :56 LOCATION:D.MS [facility]2 ADMISSION DATE:09/26/17 SURGEON: REYES TAPIA MD DATE OF OPERATION: 10/14/2017 PREOPERATIVE DIAGNOSIS: Abscess in the right mid thigh. POSTOPERATIVE DIAGNOSIS: Abscess in the right mid thigh. PROCEDURE: Excisional debridement of the abscess to the right mid thigh, 60 cm in total. This included skin, subcutaneous tissue, portions of fat, fascia, muscle and bone. Please note the wound was packed with a 2-inch Kerlix gauze soaked in dilute Betadine. OPERATIVE SUMMARY IN DETAIL: After obtaining the appropriate preoperative orthopedic surgery consent as well as anesthetic consultation, evaluation and clearance, the patient was brought to the operating room and placed on the operating table in the supine position. After adequate general laryngeal mask was administered, the patient's right upper thigh area was prepped and draped in routine sterile fashion. Spinal needle was used to localize the area of purulence given the MRI accordance and indeed it was localized quickly. Incision was taken down through the skin and subcutaneous tissue and through the first layer of fascia just lateral to the sartorius where upon opening the myositic appearing vastus lateralis large area consistent with the measuring on the MRI was found, completely decorticated. Cultures were taken as well as sample of the fluid taken for analysis. The wound at this point was copiously irrigated using pulsatile lavage diet therapist. Combination of curettes, rongeurs as well as scalpel were used to cut away any appearing tissue. At this point, the wound was packed entirely with a roll of 2-inch Kerlix gauze soaked in dilute Betadine. Sterile dressings were applied. The patient was awakened and taken to the recovery room in stable condition. All final needle and sponge counts were correct. TRANSINT:[id number] Voice Confirmation ID: [id number] DOCUMENT ID: [id number] WILLIE FRANCIS, REYES POLO at 1808 CC: [id number] DICTATION DATE: 10/14/17 1526 HAIRSPRING CUTTER: 10/14/17 1600 ADM IN [place] [address] [place] [address]
--- NOTE | ~2017-09-26 | CN ---
PATIENT NAME:ELIANE OCASIO MEDICAL RECORD: [id number] : 56 LOCATION:D.MS [facility]2201 ADMIT DATE: 09/26/17 ACCOUNT: [id number] CONSULTING PHYSICIAN: SHONNA MELVIN MD REFERRING PHYSICIAN: KAYLEN BARAHONA MD DATE OF CONSULTATION: 09/27/2017 CONSULT REQUESTING PHYSICIAN: Christ Mcnally MD REASON FOR CONSULTATION: Pneumonia, leukocytosis. HISTORY OF PRESENT ILLNESS: Mr. Ocasio is a 56-year-old gentleman who was directly admitted from the office with cellulitis of the right foot. The patient is a very poor historian. He also has cough and some shortness of breath. The chest radiograph showed bilateral infiltrate, which is getting worse on the repeat chest radiograph. He is also having a fever of 101.8. REVIEW OF SYSTEMS: As in history of present illness. PAST MEDICAL HISTORY: 1. Rheumatoid arthritis. 2. Asthma. 3. Osteoarthritis. 4. Hypertension. 5. Blind left eye. 6. Anxiety, depression. PAST SURGICAL HISTORY: 1. He had knee surgery times 2. 2. Hip surgery on the right. ALLERGIES: HE IS ALLERGIC TO SULFA AND TRIMETHOPRIM. PRESENT MEDICATIONS: He is on vancomycin IV, Rocephin IV. PERSONAL AND SOCIAL HISTORY: The patient is a nonsmoker, nondrinker. FAMILY HISTORY: Significant for cardiovascular disease. PHYSICAL EXAMINATION: GENERAL: Now, the patient is lying comfortably on the bed. He is not in acute respiratory distress. VITAL SIGNS: The blood pressure is 160/79, pulse is 119, respirations 22, temperature is 97.8, SpO2 is 92% on room air. HEENT: Conjunctivae are pink. Sclerae are not icteric. NECK: Neck is supple. No JVD. CHEST: Bilateral crackles. No wheezing. HEART: Rhythm regular. Normal sound. No murmur. ABDOMEN: Abdomen is soft. Bowel sounds present. No hepatosplenomegaly. RECTAL: Deferred. EXTREMITIES: No cyanosis, no clubbing, no pedal edema. SKIN: The skin is warm. Normal turgor. CENTRAL NERVOUS SYSTEM: The patient is awake and alert. There are no obvious cranial nerve abnormalities. The gait was not tested. SKIN: There is erythema of the right foot. CONSULT REPORT [id number] ELIANE OCASIO LABORATORY DATA: CBC; WBC 28.0, hemoglobin 13.5, hematocrit 39.9, and the platelet count is 233. Chemistry; sodium is 134, potassium 4.1, BUN is 22, creatinine 1.2, serum glucose 320. Lactic acid of 3.2. IMPRESSION: 1. Pneumonia, bilateral, most likely community-acquired pneumonia. 2. Cellulitis of the right foot. 3. Leukocytosis. 4. Asthma without acute exacerbation. 5. Rheumatoid arthritis. 6. Immunosuppressed state secondary to chronic steroid and/or antirheumatic medication. PLAN: 1. Continue antibiotic per Dr. Steward, albuterol/ipratropium nebulizer and add Brovana/budesonide nebulizer. 2. Mucinex DM two tablets b.i.d. 3. Give stress dose of IV steroids. Hold the p.o. prednisone. Follow up labs and chest radiograph. Dr. Mcnally, thank you for involving me in the care of Mr. Ocasio. TRANSINT:[id number] Voice Confirmation ID: [id number] DOCUMENT ID: [id number] SHONNA MELVIN MD at 1340 CC: CHRIST MCNALLY [id number] DICTATION DATE: 09/27/17 1653 TELEPHONE BETTING CLERK: 09/27/17 1731 ADM IN [facility] [address] [id number]
--- NOTE | ~2017-09-26 | EC ---
PATIENT:ELIANE GIBSON DATE OF SERVICE: 09/26/17 SEX: M MEDICAL RECORD: [id number] DATE OF : 56 LOCATION:D.MS [facility] AGE OF PATIENT: 56 ADMISSION DATE: 09/26/17 REFERRING PHYSICIAN: INTERPRETING PHYSICIAN: XENA TURPIN MD ECHOCARDIOGRAM REPORT ECHO CHARGES 4 ECHO COMPLETE CLINICAL DIAGNOSIS: MSSA BACTEREMIA - R/O ENDOCARDITIS ECHOCARDIOGRAPHIC MEASUREMENTS (adult normal given) AC root (d.<3.7cm) 3.1 cm LV Septum d (<1.2 cm> 1.6 cm Valve Excursion 2.0 cm LV Septum (systole) 2.2 cm Left Atria (s.<4.0cm> 3.5 cm LVPW d(<1.2cm) 1.4 cm RV (d.<2.3cm) 2.6 cm LVPW (sytole) 1.8 cm LV diastole(<5.6CM) 5.1 cm MV E-F(>70mm/sec) cm LV systole 3.4 cm LVOT Diameter 1.8 cm MV exc.(>10mm) cm Est.ejection fraction (50-75%) % Pericardial Effusion N DOPPLER: LVIT cm/sec A 129 cm/sec E 133 cm/sec LA cm/sec RVSP 43.4 mmHg LVOT 133 cm/sec AOP1/2T m/s Asc. Ao 200 cm/sec RVOT 88.0 cm/sec RA cm/sec PA 117 cm/sec AV Gradient Peak 16.0 mmHg AV Mean 8.3 mmHg AV Area 1.6 cm MV Gradient Peak 7.3 mmHg MV Mean 2.8 mmHg MV Area cm COMMENTS: Piece Hand: Jc THOMASOE Adjunct Faculty Instructor: 3 Dr. Araya TAPE# PACS DATE OF SERVICE: 09/30/2017 Adequate 2D echo, color flow and spectral Doppler, and M-mode. LVH present. LV internal dimension is normal. Wall motion is normal. EF is greater than or equal to 55%. Aortic valve is tricuspid. No stenosis by Doppler interrogation. The left atrium is normal at 3.5 cm. The mitral valve shows no prolapse. Trace MR. Right-sided chamber size is grossly normal. Trace TR. No obvious vegetation seen in all 4 cardiac valves. TRANSINT:[id number] Voice Confirmation ID: [id number] DOCUMENT ID: [id number] ECHOCARDIOGRAM REPORT [id number] ELIANE GIBSON GREGORY A MD at 1030 CC: [id number] DICTATION DATE: 09/30/17 142 MARKETING DIRECTOR ASSISTED LIVING: 09/30/17 1442 ADM IN [facility] [address] [place] [address]
--- NOTE | ~2017-09-26 | OP ---
PATIENT NAME: ELIANE GIBSON MEDICAL RECORD: [id number] :56 LOCATION:D.MS [facility]2202 ADMISSION DATE:09/26/17 SURGEON: REYES TAPIA MD DATE OF OPERATION: 09/30/2017 PREOPERATIVE DIAGNOSIS: Osteomyelitis of the right third toe MTP joint. POSTOPERATIVE DIAGNOSIS: Osteomyelitis of the right third toe MTP joint. PROCEDURE: Right third toe excision with partial ray resection with excisional debridement. SURGEON: Reyes Tapia MD ANESTHESIA: General. INTRAOPERATIVE COMPLICATIONS: None. SUMMARY OF PATHOLOGIC FINDINGS: The patient's MTP joint on both sides was essentially devoid of hard cancellous bone indicative of osteomyelitis. The infectious portion was cut all the way back to what appeared to be noninfectious portion, copiously irrigated, cultured and then closed. OPERATIVE SUMMARY IN DETAIL: After obtaining the appropriate preoperative orthopedic surgery consent as well as anesthetic consultation, evaluation and clearance, the patient was brought to the operating room and placed on the operating table in supine position. After general laryngeal mask airway was administered, the patient's right lower extremity was prepped and draped in routine sterile fashion. A long dorsal flap incision was created and the basal aspect was transected. Dissection was then carried in a skin retaining fashion down to the MTP joint itself. MTP joint was disarticulated and the distal side of the MCP joint had obvious cellulitis. Cultures were taken at this point where purulence was noted. Substantial irrigation was then followed by taking the ray back to the distal one-third, proximal two-thirds and osteotomizing and good bleeding bone at this point was noted. A combination of curettage, rongeur, and scalpel all nonviable tissue was removed. Further irrigation was then followed by a simple closure with 4-0 Prolene. Sterile dressings were applied. The patient was awakened and taken to recovery room in stable condition. All final needle and sponge counts were correct. TRANSINT:[id number] Voice Confirmation ID: [id number] DOCUMENT ID: [id number] REYES TAPIA MD at 1601 CC: [id number] DICTATION DATE: 10/03/17 0933 ADAPTIVE PHYSICAL EDUCATION TEACHER: 10/03/17 1125 ADM IN [place] [id number] [place] [address]
[2017-09-26 13:07] VITALS: BP 135/72; BP 150/74
[2017-09-26 15:05] LABS: HEMATOCRIT 39.2 % (42.0-54.0); HEMOGLOBIN 12.9 g/dL (13.5-17.5); MCHC 32.9 g/dL (31.0-37.0); MCV 97.3 fL (80.0-100.0); MEAN PLATELET VOLUME 10.3 fL (7.4-10.4); PLATELET COUNT 237 10x3/uL (130-400); RBC 4.03 10x6/uL (4.20-6.10); RDW 13.4 % (11.5-14.5); WBC 23.6 10x3/uL (4.8-10.8)
[2017-09-26 15:17] LABS: ANION GAP 13.8 mmol/L (8-16); CALCIUM 9.8 mg/dL (8.5-10.1); CARBON DIOXIDE 27.2 mmol/L (21.0-32.0); CREATININE - SERUM 1.1 mg/dL (0.6-1.3)
[2017-09-26 16:06] LABS: C-REACTIVE PROTEIN 13.5 mg/dL (0.0-0.9)
[2017-09-26 16:18] VITALS: BP 126/72
[2017-09-26 16:33] LABS: BASOPHILS 1 % (0-2); EOSINOPHILS 1 % (0-7); LYMPHOCYTES 13 % (15-50); NEUTROPHILS 83 % (40-80); PLATELET ESTIMATE NORMAL
[2017-09-26 20:00] VITALS: BP 131/65
[2017-09-27 04:00] VITALS: BP 90/60
[2017-09-27 04:24] LABS: BASOPHILS 0.1 % (0-2); EOSINOPHILS 0.1 % (0-7); HEMATOCRIT 39.9 % (42.0-54.0); HEMOGLOBIN 13.5 g/dL (13.5-17.5); IMMATURE GRANULOCYTES 0.5 % (0-5); LYMPHOCYTES 4.8 % (15-50); MCH 32.9 pg (26.0-34.0); MCHC 33.8 g/dL (31.0-37.0); MCV 97.3 fL (80.0-100.0); MEAN PLATELET VOLUME 10.5 fL (7.4-10.4); MONOCYTES 4.4 % (2-11); NEUTROPHILS 90.1 % (40-80); PLATELET COUNT 233 10x3/uL (130-400); RDW 13.7 % (11.5-14.5)
[2017-09-27 04:43] LABS: ALBUMIN 2.9 g/dL (3.4-5.0); ANION GAP 16.6 mmol/L (8-16); BILIRUBIN - TOTAL 1.25 mg/dL (0.2-1.3); CARBON DIOXIDE 24.5 mmol/L (21.0-32.0); CREATININE - SERUM 1.2 mg/dL (0.6-1.3); POTASSIUM - SERUM 4.1 mmol/L (3.5-5.1); PROTEIN - SERUM 7.3 g/dL (6.4-8.2)
[2017-09-27 07:44] VITALS: BP 116/67
[2017-09-27 09:46] VITALS: BP 116/67
[2017-09-27 11:05] LABS: APPEARANCE HAZY (CLEAR); BACTERIA MODERATE /hpf (NONE SEEN); BILIRUBIN NEGATIVE (NEGATIVE); COLOR DK YELLOW (YELLOW); EPITHELIAL CELLS 0-5 /hpf (0-5); GLUCOSE NEGATIVE (NEGATIVE); KETONE NEGATIVE (NEGATIVE); NITRITE NEGATIVE (NEGATIVE); PROTEIN 2+ mg/dL (NEGATIVE); RED CELLS - URINE 0-5 /hpf (0-5); SPECIFIC GRAVITY 1.015 (1.005-1.020); UROBILINOGEN NORMAL (NORMAL); WHITE CELLS - URINE 25-50 /hpf (0-5)
[2017-09-27 12:21] VITALS: BP 146/67
[2017-09-27 12:45] VITALS: BMI 38.0
[2017-09-27 15:55] VITALS: BP 160/79
[2017-09-27 20:00] VITALS: BP 109/66
[2017-09-28 04:00] VITALS: BP 131/71
[2017-09-28 05:20] LABS: BASOPHILS 0.1 % (0-2); EOSINOPHILS 0 % (0-7); HEMATOCRIT 38.7 % (42.0-54.0); HEMOGLOBIN 12.9 g/dL (13.5-17.5); IMMATURE GRANULOCYTES 5.5 % (0-5); MCH 32.3 pg (26.0-34.0); MCHC 33.3 g/dL (31.0-37.0); MEAN PLATELET VOLUME 10.5 fL (7.4-10.4); MONOCYTES 3.8 % (2-11); NEUTROPHILS 88.6 % (40-80); PLATELET COUNT 202 10x3/uL (130-400); RBC 3.99 10x6/uL (4.20-6.10); RDW 13.9 % (11.5-14.5); WBC 34.3 10x3/uL (4.8-10.8)
[2017-09-28 05:32] LABS: ALBUMIN 2.4 g/dL (3.4-5.0); ANION GAP 16.3 mmol/L (8-16); BILIRUBIN - TOTAL 0.76 mg/dL (0.2-1.3); CARBON DIOXIDE 23.4 mmol/L (21.0-32.0); CREATININE - SERUM 1.5 mg/dL (0.6-1.3); POTASSIUM - SERUM 4.7 mmol/L (3.5-5.1); PROTEIN - SERUM 7.3 g/dL (6.4-8.2); VANCOMYCIN - TROUGH 22.2 ug/mL (10.0-20.0)
[2017-09-28 08:15] VITALS: BP 108/71
[2017-09-28 13:04] VITALS: BP 110/70
[2017-09-28 15:58] VITALS: BP 110/68
[2017-09-28 21:57] VITALS: BP 96/60
[2017-09-29 00:57] VITALS: BP 101/68
[2017-09-29 05:44] LABS: BASOPHILS 0.1 % (0-2); EOSINOPHILS 0 % (0-7); HEMATOCRIT 35.2 % (42.0-54.0); HEMOGLOBIN 11.7 g/dL (13.5-17.5); IMMATURE GRANULOCYTES 1.1 % (0-5); LYMPHOCYTES 3.1 % (15-50); MCH 32.1 pg (26.0-34.0); MCHC 33.2 g/dL (31.0-37.0); MCV 96.7 fL (80.0-100.0); MEAN PLATELET VOLUME 10.8 fL (7.4-10.4); MONOCYTES 4.4 % (2-11); NEUTROPHILS 91.3 % (40-80); PLATELET COUNT 220 10x3/uL (130-400); RBC 3.64 10x6/uL (4.20-6.10); RDW 14.1 % (11.5-14.5); WBC 35.5 10x3/uL (4.8-10.8)
[2017-09-29 06:03] LABS: ALBUMIN 2.3 g/dL (3.4-5.0); BILIRUBIN - TOTAL 0.33 mg/dL (0.2-1.3); CARBON DIOXIDE 24.9 mmol/L (21.0-32.0); CREATININE - SERUM 1.5 mg/dL (0.6-1.3); PROTEIN - SERUM 7.1 g/dL (6.4-8.2)
[2017-09-29 06:12] LABS: POTASSIUM - SERUM 3.9 mmol/L (3.5-5.1)
[2017-09-29 09:16] VITALS: BP 97/61
[2017-09-29 11:28] VITALS: Ht 182.9 cm; Wt 120.0 kg
[2017-09-29 12:08] VITALS: BP 99/66
[2017-09-29 16:07] VITALS: BP 100/64
[2017-09-29 23:18] VITALS: BP 105/54
[2017-09-30 04:00] VITALS: BP 111/57
[2017-09-30 05:26] LABS: BASOPHILS 0 % (0-2); EOSINOPHILS 0 % (0-7); HEMATOCRIT 33.1 % (42.0-54.0); HEMOGLOBIN 10.6 g/dL (13.5-17.5); IMMATURE GRANULOCYTES 1.2 % (0-5); LYMPHOCYTES 4.5 % (15-50); MCH 31.5 pg (26.0-34.0); MCV 98.5 fL (80.0-100.0); MEAN PLATELET VOLUME 11.4 fL (7.4-10.4); NEUTROPHILS 88.3 % (40-80); PLATELET COUNT 214 10x3/uL (130-400); RBC 3.36 10x6/uL (4.20-6.10); RDW 14.6 % (11.5-14.5); WBC 30.4 10x3/uL (4.8-10.8)
[2017-09-30 05:45] LABS: ALBUMIN 2.1 g/dL (3.4-5.0); BILIRUBIN - TOTAL 0.22 mg/dL (0.2-1.3); CALCIUM 8.6 mg/dL (8.5-10.1); CARBON DIOXIDE 23.3 mmol/L (21.0-32.0); CREATININE - SERUM 1.6 mg/dL (0.6-1.3); POTASSIUM - SERUM 4.3 mmol/L (3.5-5.1); PROTEIN - SERUM 6.5 g/dL (6.4-8.2)
[2017-09-30 08:25] VITALS: BP 93/66
[2017-09-30 14:08] VITALS: BP 110/68
[2017-09-30 15:17] VITALS: BP 115/60
[2017-09-30 20:00] VITALS: BP 128/75
[2017-10-01 04:00] VITALS: BP 145/75
[2017-10-01 04:30] LABS: BASOPHILS 0.1 % (0-2); EOSINOPHILS 0.4 % (0-7); HEMATOCRIT 36.8 % (42.0-54.0); HEMOGLOBIN 11.8 g/dL (13.5-17.5); IMMATURE GRANULOCYTES 4.3 % (0-5); LYMPHOCYTES 10.6 % (15-50); MCH 31.8 pg (26.0-34.0); MCHC 32.1 g/dL (31.0-37.0); MCV 99.2 fL (80.0-100.0); MEAN PLATELET VOLUME 10.9 fL (7.4-10.4); MONOCYTES 7.4 % (2-11); NEUTROPHILS 77.2 % (40-80); PLATELET COUNT 233 10x3/uL (130-400); RBC 3.71 10x6/uL (4.20-6.10); RDW 14.5 % (11.5-14.5)
[2017-10-01 04:39] LABS: WBC 17.5 10x3/uL (4.8-10.8)
[2017-10-01 05:02] LABS: ALBUMIN 2.4 g/dL (3.4-5.0); ANION GAP 13.7 mmol/L (8-16); BILIRUBIN - TOTAL 0.4 mg/dL (0.2-1.3); CALCIUM 8.4 mg/dL (8.5-10.1); CREATININE - SERUM 1.2 mg/dL (0.6-1.3); POTASSIUM - SERUM 3.7 mmol/L (3.5-5.1)
[2017-10-01 09:39] VITALS: BP 129/71
[2017-10-01 12:02] VITALS: BP 147/86
[2017-10-01 16:17] VITALS: BP 138/80
[2017-10-01 20:00] VITALS: BP 140/71
[2017-10-02 04:00] VITALS: BP 143/69
[2017-10-02 08:08] VITALS: BP 131/74
[2017-10-02 12:53] VITALS: BP 141/66
[2017-10-02 15:54] VITALS: BP 124/59
[2017-10-02 20:00] VITALS: BP 120/63
[2017-10-03] VITALS: BP 116/69
[2017-10-03 04:00] VITALS: BP 139/85
[2017-10-03 04:56] LABS: BASOPHILS 0.5 % (0-2); EOSINOPHILS 1.4 % (0-7); HEMATOCRIT 36.6 % (42.0-54.0); HEMOGLOBIN 12.1 g/dL (13.5-17.5); IMMATURE GRANULOCYTES 12.7 % (0-5); LYMPHOCYTES 13.9 % (15-50); MCH 31.9 pg (26.0-34.0); MCHC 33.1 g/dL (31.0-37.0); MCV 96.6 fL (80.0-100.0); MEAN PLATELET VOLUME 10.9 fL (7.4-10.4); MONOCYTES 8.5 % (2-11); PLATELET COUNT 352 10x3/uL (130-400); RBC 3.79 10x6/uL (4.20-6.10); RDW 14.3 % (11.5-14.5); WBC 25.9 10x3/uL (4.8-10.8)
[2017-10-03 04:58] LABS: CALC OSMOLALITY 282 mosm/kg (275-300); CALCIUM 8.8 mg/dL (8.5-10.1); CARBON DIOXIDE 26.2 mmol/L (21.0-32.0); CHLORIDE - SERUM 102 mmol/L (98-107); CREATININE - SERUM 0.9 mg/dL (0.6-1.3); POTASSIUM - SERUM 3.9 mmol/L (3.5-5.1); SODIUM 138 mmol/L (136-145); UREA NITROGEN 31 mg/dL (7-18); eGFR NON AFRICAN AMERICAN > 90 mL/min (90-120)
[2017-10-03 05:04] LABS: GLUCOSE 92 mg/dL (74-106)
[2017-10-03 07:55] VITALS: BP 131/54
[2017-10-03 12:30] VITALS: BP 110/62
[2017-10-03 15:46] VITALS: BP 128/52
[2017-10-03 20:00] VITALS: BP 116/71
[2017-10-04] VITALS: BP 139/72
[2017-10-04 04:00] VITALS: BP 126/67
[2017-10-04 04:28] LABS: BASOPHILS 0.7 % (0-2); EOSINOPHILS 1.9 % (0-7); HEMATOCRIT 36.9 % (42.0-54.0); IMMATURE GRANULOCYTES 13.5 % (0-5); LYMPHOCYTES 13.7 % (15-50); MCH 31.3 pg (26.0-34.0); MCHC 32.5 g/dL (31.0-37.0); MCV 96.1 fL (80.0-100.0); MEAN PLATELET VOLUME 10.7 fL (7.4-10.4); MONOCYTES 9.3 % (2-11); NEUTROPHILS 60.9 % (40-80); PLATELET COUNT 423 10x3/uL (130-400); RBC 3.84 10x6/uL (4.20-6.10); RDW 14.3 % (11.5-14.5); WBC 22.2 10x3/uL (4.8-10.8)
[2017-10-04 04:32] LABS: CALC OSMOLALITY 282 mosm/kg (275-300); CALCIUM 9.4 mg/dL (8.5-10.1); CARBON DIOXIDE 24.7 mmol/L (21.0-32.0); CHLORIDE - SERUM 101 mmol/L (98-107); CREATININE - SERUM 0.9 mg/dL (0.6-1.3); GLUCOSE 94 mg/dL (74-106); POTASSIUM - SERUM 4.1 mmol/L (3.5-5.1); SODIUM 138 mmol/L (136-145); UREA NITROGEN 31 mg/dL (7-18); eGFR NON AFRICAN AMERICAN > 90 mL/min (90-120)
[2017-10-04 08:08] VITALS: BP 130/58
[2017-10-04 12:57] VITALS: BP 130/62
[2017-10-04 16:37] VITALS: BP 127/65
[2017-10-04 22:00] VITALS: BP 124/69
[2017-10-05 00:32] VITALS: BP 144/80
[2017-10-05 04:00] VITALS: BP 114/75
[2017-10-05 06:31] LABS: BASOPHILS 0.3 % (0-2); EOSINOPHILS 1.7 % (0-7); HEMATOCRIT 37.5 % (42.0-54.0); HEMOGLOBIN 12.1 g/dL (13.5-17.5); IMMATURE GRANULOCYTES 9.8 % (0-5); LYMPHOCYTES 16.3 % (15-50); MCH 31.5 pg (26.0-34.0); MCHC 32.3 g/dL (31.0-37.0); MCV 97.7 fL (80.0-100.0); MEAN PLATELET VOLUME 10.3 fL (7.4-10.4); NEUTROPHILS 63.9 % (40-80); PLATELET COUNT 422 10x3/uL (130-400); RBC 3.84 10x6/uL (4.20-6.10); RDW 14.4 % (11.5-14.5)
[2017-10-05 06:48] LABS: CALC OSMOLALITY 277 mosm/kg (275-300); CALCIUM 9.3 mg/dL (8.5-10.1); CARBON DIOXIDE 28.4 mmol/L (21.0-32.0); CHLORIDE - SERUM 98 mmol/L (98-107); GLUCOSE 104 mg/dL (74-106); POTASSIUM - SERUM 4.1 mmol/L (3.5-5.1); SODIUM 135 mmol/L (136-145); UREA NITROGEN 34 mg/dL (7-18); eGFR NON AFRICAN AMERICAN 81 mL/min (90-120)
[2017-10-05 08:03] VITALS: BP 143/81
[2017-10-05 12:16] VITALS: BP 136/73
[2017-10-05 16:14] VITALS: BP 143/82
[2017-10-05 20:00] VITALS: BP 158/75
[2017-10-06] VITALS: BP 124/66
[2017-10-06 04:00] VITALS: BP 145/73
[2017-10-06 04:15] LABS: BASOPHILS 0.2 % (0-2); EOSINOPHILS 0.8 % (0-7); HEMATOCRIT 38.8 % (42.0-54.0); HEMOGLOBIN 12.6 g/dL (13.5-17.5); IMMATURE GRANULOCYTES 5.8 % (0-5); LYMPHOCYTES 15.9 % (15-50); MCH 31.9 pg (26.0-34.0); MCHC 32.5 g/dL (31.0-37.0); MCV 98.2 fL (80.0-100.0); MEAN PLATELET VOLUME 10.4 fL (7.4-10.4); MONOCYTES 6.7 % (2-11); NEUTROPHILS 70.6 % (40-80); PLATELET COUNT 450 10x3/uL (130-400); RBC 3.95 10x6/uL (4.20-6.10); RDW 14.1 % (11.5-14.5); WBC 23.2 10x3/uL (4.8-10.8)
[2017-10-06 04:30] LABS: CALCIUM 9.3 mg/dL (8.5-10.1); CARBON DIOXIDE 29.8 mmol/L (21.0-32.0); CREATININE - SERUM 1.1 mg/dL (0.6-1.3); POTASSIUM - SERUM 3.8 mmol/L (3.5-5.1)
[2017-10-06 08:06] VITALS: BP 102/79
[2017-10-06 12:12] VITALS: BP 128/71
[2017-10-06 16:27] VITALS: BP 161/79
[2017-10-06 20:00] VITALS: BP 1536/79
[2017-10-07] VITALS: BP 143/63
[2017-10-07 04:57] LABS: BASOPHILS 0.1 % (0-2); EOSINOPHILS 1.3 % (0-7); HEMATOCRIT 37.8 % (42.0-54.0); HEMOGLOBIN 12.2 g/dL (13.5-17.5); IMMATURE GRANULOCYTES 4.8 % (0-5); LYMPHOCYTES 19.2 % (15-50); MCH 31.4 pg (26.0-34.0); MCHC 32.3 g/dL (31.0-37.0); MCV 97.4 fL (80.0-100.0); MEAN PLATELET VOLUME 10.4 fL (7.4-10.4); MONOCYTES 8.2 % (2-11); NEUTROPHILS 66.4 % (40-80); PLATELET COUNT 408 10x3/uL (130-400); RBC 3.88 10x6/uL (4.20-6.10); RDW 14.2 % (11.5-14.5)
[2017-10-07 05:06] LABS: WBC 16.4 10x3/uL (4.8-10.8)
[2017-10-07 05:07] LABS: CALC OSMOLALITY 281 mosm/kg (275-300); CALCIUM 8.9 mg/dL (8.5-10.1); CARBON DIOXIDE 28.3 mmol/L (21.0-32.0); CHLORIDE - SERUM 100 mmol/L (98-107); GLUCOSE 119 mg/dL (74-106); POTASSIUM - SERUM 3.9 mmol/L (3.5-5.1); SODIUM 137 mmol/L (136-145); UREA NITROGEN 31 mg/dL (7-18); eGFR NON AFRICAN AMERICAN 81 mL/min (90-120)
[2017-10-07 06:00] VITALS: BP 124/73
[2017-10-07 08:45] VITALS: BP 134/80
[2017-10-07 11:40] LABS: MACROPHAGES BF 2 %; NEUT - BF 46 %
[2017-10-07 13:11] VITALS: BP 166/77
[2017-10-07 16:44] VITALS: BP 148/79
[2017-10-07 20:00] VITALS: BP 146/83
[2017-10-08 04:00] VITALS: BP 118/81
[2017-10-08 08:55] VITALS: BP 141/76
[2017-10-08 11:04] LABS: BASOPHILS 0.1 % (0-2); EOSINOPHILS 0.7 % (0-7); HEMATOCRIT 38.9 % (42.0-54.0); HEMOGLOBIN 12.6 g/dL (13.5-17.5); IMMATURE GRANULOCYTES 2.4 % (0-5); LYMPHOCYTES 16.7 % (15-50); MCH 31.8 pg (26.0-34.0); MCHC 32.4 g/dL (31.0-37.0); MCV 98.2 fL (80.0-100.0); MEAN PLATELET VOLUME 10.2 fL (7.4-10.4); MONOCYTES 8.5 % (2-11); NEUTROPHILS 71.6 % (40-80); PLATELET COUNT 372 10x3/uL (130-400); RBC 3.96 10x6/uL (4.20-6.10); RDW 13.9 % (11.5-14.5)
[2017-10-08 11:43] LABS: ALBUMIN 2.6 g/dL (3.4-5.0); ALKALINE PHOSPHATASE 74 U/L (46-116); ALT (SGPT) 25 U/L (10-68); BILIRUBIN - TOTAL 0.49 mg/dL (0.2-1.3); CARBON DIOXIDE 27.1 mmol/L (21.0-32.0); CHLORIDE - SERUM 98 mmol/L (98-107); POTASSIUM - SERUM 3.9 mmol/L (3.5-5.1); PROTEIN - SERUM 7.8 g/dL (6.4-8.2); SODIUM 134 mmol/L (136-145); eGFR NON AFRICAN AMERICAN 81 mL/min (90-120)
[2017-10-08 11:47] LABS: CALC OSMOLALITY 281 mosm/kg (275-300); GLUCOSE 283 mg/dL (74-106); UREA NITROGEN 23 mg/dL (7-18)
[2017-10-08 13:05] VITALS: BP 160/76
[2017-10-08 16:00] VITALS: BP 147/75
[2017-10-08] MEDS ORDERED: VALIUM10 MG PO (19:07)
[2017-10-08 20:00] VITALS: BP 136/70
[2017-10-09] VITALS (13 sets, daily range): BP systolic 88–162; BP diastolic 54–89
[2017-10-09 05:10] LABS: BASOPHILS 0.1 % (0-2); EOSINOPHILS 1.1 % (0-7); HEMATOCRIT 37.4 % (42.0-54.0); HEMOGLOBIN 11.9 g/dL (13.5-17.5); LYMPHOCYTES 22.2 % (15-50); MCH 31.2 pg (26.0-34.0); MCHC 31.8 g/dL (31.0-37.0); MCV 97.9 fL (80.0-100.0); MEAN PLATELET VOLUME 10.6 fL (7.4-10.4); MONOCYTES 10.5 % (2-11); NEUTROPHILS 64.1 % (40-80); PLATELET COUNT 348 10x3/uL (130-400); RBC 3.82 10x6/uL (4.20-6.10); WBC 14.8 10x3/uL (4.8-10.8)
[2017-10-09 05:41] LABS: ALBUMIN 2.3 g/dL (3.4-5.0); ALKALINE PHOSPHATASE 60 U/L (46-116); ALT (SGPT) 19 U/L (10-68); CALCIUM 8.8 mg/dL (8.5-10.1); CARBON DIOXIDE 25.7 mmol/L (21.0-32.0); CHLORIDE - SERUM 102 mmol/L (98-107); CREATININE - SERUM 0.9 mg/dL (0.6-1.3); POTASSIUM - SERUM 3.7 mmol/L (3.5-5.1); PROTEIN - SERUM 6.9 g/dL (6.4-8.2); SODIUM 138 mmol/L (136-145); UREA NITROGEN 21 mg/dL (7-18); eGFR NON AFRICAN AMERICAN > 90 mL/min (90-120)
[2017-10-09 05:45] LABS: CALC OSMOLALITY 278 mosm/kg (275-300); GLUCOSE 97 mg/dL (74-106)
[2017-10-09 09:16] LABS: INR 1.06 (0.85-1.17); PROTIME 13.4 SECONDS (11.6-15.0)
[2017-10-10] VITALS (7 sets, daily range): BP systolic 120–169; BP diastolic 62–85
[2017-10-10 05:02] LABS: BASOPHILS 0.1 % (0-2); EOSINOPHILS 1.2 % (0-7); HEMATOCRIT 36.4 % (42.0-54.0); HEMOGLOBIN 11.3 g/dL (13.5-17.5); IMMATURE GRANULOCYTES 1.5 % (0-5); LYMPHOCYTES 25.7 % (15-50); MCH 30.5 pg (26.0-34.0); MCV 98.4 fL (80.0-100.0); MEAN PLATELET VOLUME 10.5 fL (7.4-10.4); MONOCYTES 9.8 % (2-11); NEUTROPHILS 61.7 % (40-80); PLATELET COUNT 318 10x3/uL (130-400); WBC 12.9 10x3/uL (4.8-10.8)
[2017-10-10 05:15] LABS: ALBUMIN 2.3 g/dL (3.4-5.0); ALKALINE PHOSPHATASE 57 U/L (46-116); ALT (SGPT) 17 U/L (10-68); CALC OSMOLALITY 274 mosm/kg (275-300); CALCIUM 8.8 mg/dL (8.5-10.1); CARBON DIOXIDE 26.7 mmol/L (21.0-32.0); CHLORIDE - SERUM 101 mmol/L (98-107); CREATININE - SERUM 0.9 mg/dL (0.6-1.3); POTASSIUM - SERUM 3.9 mmol/L (3.5-5.1); PROTEIN - SERUM 7.2 g/dL (6.4-8.2); SODIUM 137 mmol/L (136-145); UREA NITROGEN 21 mg/dL (7-18); eGFR NON AFRICAN AMERICAN > 90 mL/min (90-120)
[2017-10-10 05:28] LABS: GLUCOSE 61 mg/dL (74-106)
[2017-10-11 04:00] VITALS: BP 127/79
[2017-10-11 05:48] LABS: BASOPHILS 0.2 % (0-2); EOSINOPHILS 1.2 % (0-7); HEMATOCRIT 35.3 % (42.0-54.0); HEMOGLOBIN 11.4 g/dL (13.5-17.5); IMMATURE GRANULOCYTES 1.6 % (0-5); LYMPHOCYTES 27.1 % (15-50); MCH 31.4 pg (26.0-34.0); MCHC 32.3 g/dL (31.0-37.0); MCV 97.2 fL (80.0-100.0); MEAN PLATELET VOLUME 10.6 fL (7.4-10.4); MONOCYTES 11.6 % (2-11); NEUTROPHILS 58.3 % (40-80); PLATELET COUNT 279 10x3/uL (130-400); RBC 3.63 10x6/uL (4.20-6.10); RDW 13.9 % (11.5-14.5); WBC 12.3 10x3/uL (4.8-10.8)
[2017-10-11 06:04] LABS: ALBUMIN 2.4 g/dL (3.4-5.0); ALKALINE PHOSPHATASE 66 U/L (46-116); ALT (SGPT) 17 U/L (10-68); BILIRUBIN - TOTAL 0.41 mg/dL (0.2-1.3); CALC OSMOLALITY 273 mosm/kg (275-300); CALCIUM 8.7 mg/dL (8.5-10.1); CHLORIDE - SERUM 100 mmol/L (98-107); CREATININE - SERUM 0.9 mg/dL (0.6-1.3); POTASSIUM - SERUM 3.8 mmol/L (3.5-5.1); PROTEIN - SERUM 7.4 g/dL (6.4-8.2); SODIUM 135 mmol/L (136-145); UREA NITROGEN 20 mg/dL (7-18); eGFR NON AFRICAN AMERICAN > 90 mL/min (90-120)
[2017-10-11 06:13] LABS: GLUCOSE 114 mg/dL (74-106)
[2017-10-11 08:04] VITALS: BP 143/75
[2017-10-11 12:14] VITALS: BP 148/80
[2017-10-11 16:16] VITALS: BP 116/63
[2017-10-11 20:00] VITALS: BP 123/76
[2017-10-11 23:30] VITALS: BP 143/75
[2017-10-12 04:00] VITALS: BP 144/88
[2017-10-12 04:53] LABS: BASOPHILS 0.2 % (0-2); EOSINOPHILS 1.2 % (0-7); HEMATOCRIT 36.1 % (42.0-54.0); HEMOGLOBIN 11.5 g/dL (13.5-17.5); IMMATURE GRANULOCYTES 1.3 % (0-5); LYMPHOCYTES 24.8 % (15-50); MCH 30.9 pg (26.0-34.0); MCHC 31.9 g/dL (31.0-37.0); MEAN PLATELET VOLUME 10.9 fL (7.4-10.4); MONOCYTES 10.3 % (2-11); NEUTROPHILS 62.2 % (40-80); PLATELET COUNT 274 10x3/uL (130-400); RBC 3.72 10x6/uL (4.20-6.10); RDW 13.6 % (11.5-14.5); WBC 13.3 10x3/uL (4.8-10.8)
[2017-10-12 05:14] LABS: ALBUMIN 2.5 g/dL (3.4-5.0); ALKALINE PHOSPHATASE 69 U/L (46-116); ALT (SGPT) 17 U/L (10-68); BILIRUBIN - TOTAL 0.39 mg/dL (0.2-1.3); CALC OSMOLALITY 272 mosm/kg (275-300); CHLORIDE - SERUM 100 mmol/L (98-107); CREATININE - SERUM 0.9 mg/dL (0.6-1.3); GLUCOSE 104 mg/dL (74-106); PROTEIN - SERUM 7.5 g/dL (6.4-8.2); SODIUM 135 mmol/L (136-145); UREA NITROGEN 22 mg/dL (7-18); eGFR NON AFRICAN AMERICAN > 90 mL/min (90-120)
[2017-10-12 10:56] VITALS: BP 150/75
[2017-10-12 15:03] VITALS: BP 148/70
[2017-10-12 16:52] VITALS: BP 123/66
[2017-10-12 20:00] VITALS: BP 138/75
[2017-10-13] VITALS: BP 127/56
[2017-10-13 04:00] VITALS: BP 127/62
[2017-10-13 06:14] LABS: BASOPHILS 0.1 % (0-2); EOSINOPHILS 1.9 % (0-7); HEMATOCRIT 32.9 % (42.0-54.0); HEMOGLOBIN 10.3 g/dL (13.5-17.5); IMMATURE GRANULOCYTES 0.9 % (0-5); LYMPHOCYTES 23.9 % (15-50); MCH 30.5 pg (26.0-34.0); MCHC 31.3 g/dL (31.0-37.0); MCV 97.3 fL (80.0-100.0); MEAN PLATELET VOLUME 10.9 fL (7.4-10.4); MONOCYTES 10.8 % (2-11); NEUTROPHILS 62.4 % (40-80); PLATELET COUNT 261 10x3/uL (130-400); RBC 3.38 10x6/uL (4.20-6.10); RDW 13.5 % (11.5-14.5); WBC 10.8 10x3/uL (4.8-10.8)
[2017-10-13 06:41] LABS: ALBUMIN 2.3 g/dL (3.4-5.0); ALKALINE PHOSPHATASE 72 U/L (46-116); ALT (SGPT) 14 U/L (10-68); BILIRUBIN - TOTAL 0.27 mg/dL (0.2-1.3); CALC OSMOLALITY 274 mosm/kg (275-300); CALCIUM 8.8 mg/dL (8.5-10.1); CHLORIDE - SERUM 101 mmol/L (98-107); CREATININE - SERUM 0.9 mg/dL (0.6-1.3); GLUCOSE 123 mg/dL (74-106); POTASSIUM - SERUM 4.1 mmol/L (3.5-5.1); PROTEIN - SERUM 7.1 g/dL (6.4-8.2); SODIUM 136 mmol/L (136-145); UREA NITROGEN 19 mg/dL (7-18); eGFR NON AFRICAN AMERICAN > 90 mL/min (90-120)
[2017-10-13 08:07] VITALS: BP 151/70
[2017-10-13 11:57] VITALS: BP 134/72
[2017-10-13 15:29] VITALS: BP 139/71
[2017-10-13 20:55] VITALS: BP 120/73
[2017-10-14 05:40] VITALS: BP 127/70
[2017-10-14 06:00] LABS: BASOPHILS 0.2 % (0-2); EOSINOPHILS 1.3 % (0-7); IMMATURE GRANULOCYTES 0.7 % (0-5); LYMPHOCYTES 24.9 % (15-50); MCH 30.4 pg (26.0-34.0); MCHC 31.3 g/dL (31.0-37.0); MCV 97.3 fL (80.0-100.0); MEAN PLATELET VOLUME 11.1 fL (7.4-10.4); MONOCYTES 10.4 % (2-11); NEUTROPHILS 62.5 % (40-80); PLATELET COUNT 249 10x3/uL (130-400); RBC 3.29 10x6/uL (4.20-6.10); RDW 13.4 % (11.5-14.5); WBC 12.7 10x3/uL (4.8-10.8)
[2017-10-14 06:33] LABS: ALBUMIN 2.3 g/dL (3.4-5.0); ALKALINE PHOSPHATASE 69 U/L (46-116); ALT (SGPT) 15 U/L (10-68); CALC OSMOLALITY 276 mosm/kg (275-300); CALCIUM 8.9 mg/dL (8.5-10.1); CHLORIDE - SERUM 103 mmol/L (98-107); CREATININE - SERUM 0.7 mg/dL (0.6-1.3); GLUCOSE 100 mg/dL (74-106); PROTEIN - SERUM 7.1 g/dL (6.4-8.2); SODIUM 138 mmol/L (136-145); eGFR NON AFRICAN AMERICAN > 90 mL/min (90-120)
[2017-10-14 06:42] LABS: UREA NITROGEN 14 mg/dL (7-18)
[2017-10-14 09:39] VITALS: BP 143/79
[2017-10-14 13:56] VITALS: BP 137/71
[2017-10-14 14:30] LABS: PROTEIN - BODY FLUID 5.9 G/DL
[2017-10-14 14:44] VITALS: BP 143/74
[2017-10-14 15:14] LABS: MACROPHAGES BF 5 %; NEUT - BF 88 %
[2017-10-14 20:00] VITALS: BP 166/75
[2017-10-15 04:00] VITALS: BP 127/75
[2017-10-15 04:37] LABS: BASOPHILS 0.2 % (0-2); EOSINOPHILS 1.3 % (0-7); HEMATOCRIT 32.4 % (42.0-54.0); HEMOGLOBIN 10.4 g/dL (13.5-17.5); IMMATURE GRANULOCYTES 0.6 % (0-5); LYMPHOCYTES 20.9 % (15-50); MCHC 32.1 g/dL (31.0-37.0); MCV 96.7 fL (80.0-100.0); MEAN PLATELET VOLUME 10.6 fL (7.4-10.4); MONOCYTES 9.7 % (2-11); NEUTROPHILS 67.3 % (40-80); PLATELET COUNT 236 10x3/uL (130-400); RBC 3.35 10x6/uL (4.20-6.10); RDW 13.4 % (11.5-14.5); WBC 12.7 10x3/uL (4.8-10.8)
[2017-10-15 05:24] LABS: ALBUMIN 2.2 g/dL (3.4-5.0); ALKALINE PHOSPHATASE 74 U/L (46-116); ALT (SGPT) 14 U/L (10-68); CALC OSMOLALITY 274 mosm/kg (275-300); CARBON DIOXIDE 28.2 mmol/L (21.0-32.0); CHLORIDE - SERUM 102 mmol/L (98-107); CREATININE - SERUM 0.8 mg/dL (0.6-1.3); GLUCOSE 110 mg/dL (74-106); POTASSIUM - SERUM 4.3 mmol/L (3.5-5.1); PROTEIN - SERUM 7.1 g/dL (6.4-8.2); SODIUM 137 mmol/L (136-145); UREA NITROGEN 13 mg/dL (7-18); eGFR NON AFRICAN AMERICAN > 90 mL/min (90-120)
[2017-10-15 08:28] VITALS: BP 146/76
[2017-10-15 13:09] VITALS: BP 162/74
[2017-10-15 16:03] VITALS: BP 134/64
[2017-10-15 20:00] VITALS: BP 117/71
[2017-10-16 04:00] VITALS: BP 116/65
[2017-10-16 05:05] LABS: BASOPHILS 0.1 % (0-2); EOSINOPHILS 1.3 % (0-7); HEMATOCRIT 30.8 % (42.0-54.0); HEMOGLOBIN 9.9 g/dL (13.5-17.5); IMMATURE GRANULOCYTES 0.6 % (0-5); LYMPHOCYTES 18.5 % (15-50); MCH 30.9 pg (26.0-34.0); MCHC 32.1 g/dL (31.0-37.0); MCV 96.3 fL (80.0-100.0); MEAN PLATELET VOLUME 10.6 fL (7.4-10.4); MONOCYTES 11.1 % (2-11); NEUTROPHILS 68.4 % (40-80); PLATELET COUNT 221 10x3/uL (130-400); RDW 13.2 % (11.5-14.5); WBC 13.6 10x3/uL (4.8-10.8)
[2017-10-16 05:26] LABS: ALBUMIN 2.1 g/dL (3.4-5.0); ALKALINE PHOSPHATASE 68 U/L (46-116); ALT (SGPT) 12 U/L (10-68); CALCIUM 8.6 mg/dL (8.5-10.1); CARBON DIOXIDE 26.6 mmol/L (21.0-32.0); CHLORIDE - SERUM 100 mmol/L (98-107); CREATININE - SERUM 0.8 mg/dL (0.6-1.3); POTASSIUM - SERUM 3.7 mmol/L (3.5-5.1); PROTEIN - SERUM 6.9 g/dL (6.4-8.2); SODIUM 135 mmol/L (136-145); eGFR NON AFRICAN AMERICAN > 90 mL/min (90-120)
[2017-10-16 05:30] LABS: CALC OSMOLALITY 274 mosm/kg (275-300); GLUCOSE 161 mg/dL (74-106); UREA NITROGEN 17 mg/dL (7-18)
[2017-10-16 08:24] VITALS: BP 116/57
[2017-10-16] MEDS ORDERED: PROTONIX40 MG PO (10:28)
== END 2017-10-16 13:12 | disposition home health service (06) | DRG 853 ==
LOC: D.MS 11:46 → D.SDCHOLD 11:46 → D.MS 11:50
PROVIDERS: Family Medicine; Family Medicine Adult Medicine; Internal Medicine Nephrology; Orthopaedic Surgery; Specialist; Student in an Organized Health Care Education/Training Program
PROC: 0Y6M0ZC Detachment at Right Foot, Partial 3rd Ray, Open Approach (ICD-10-PCS; principal; 2017-09-30 14:15)
PROC: 0S993ZZ Drainage of Right Hip Joint, Percutaneous Approach (ICD-10-PCS; 2017-10-07)
PROC: B41D1ZZ Fluoroscopy of Aorta and Bilateral Lower Extremity Arteries using Low Osmolar Contrast (ICD-10-PCS; 2017-10-08)
PROC: 0QB60ZZ Excision of Right Upper Femur, Open Approach (ICD-10-PCS; 2017-10-15)
DX: A41.01 Sepsis due to Methicillin susceptible Staphylococcus aureus (principal); G92 Toxic encephalopathy; L03.115 Cellulitis of right lower limb; L02.415 Cutaneous abscess of right lower limb; M86.9 Osteomyelitis, unspecified; M00.9 Pyogenic arthritis, unspecified; E11.65 Type 2 diabetes mellitus with hyperglycemia; I10 Essential (primary) hypertension; E11.69 Type 2 diabetes mellitus with other specified complication; J44.9 Chronic obstructive pulmonary disease, unspecified; M06.9 Rheumatoid arthritis, unspecified; E11.51 Type 2 diabetes mellitus with diabetic peripheral angiopathy without gangrene; E86.0 Dehydration; F41.9 Anxiety disorder, unspecified; D72.829 Elevated white blood cell count, unspecified; Z79.52 Long term (current) use of systemic steroids; R01.1 Cardiac murmur, unspecified

== ENCOUNTER → 2017-10-22 16:08 | Outpatient (CLI) | payer MEDICARE ==
[2017-09-29 11:28] VITALS: BMI 38.0
[~2017-10-22 16:08] MED LIST changes: +PROTONIX40 MG PO; +VALIUM10 MG PO
[2017-10-22 20:34] LABS: BASOPHILS 0.2 % (0-2); EOSINOPHILS 3.1 % (0-7); HEMATOCRIT 34.3 % (42.0-54.0); HEMOGLOBIN 10.8 g/dL (13.5-17.5); IMMATURE GRANULOCYTES 0.8 % (0-5); LYMPHOCYTES 20.2 % (15-50); MCH 30.8 pg (26.0-34.0); MCHC 31.5 g/dL (31.0-37.0); MCV 97.7 fL (80.0-100.0); MEAN PLATELET VOLUME 11.1 fL (7.4-10.4); MONOCYTES 9.7 % (2-11); PLATELET COUNT 252 10x3/uL (130-400); RBC 3.51 10x6/uL (4.20-6.10); RDW 13.4 % (11.5-14.5); WBC 10.5 10x3/uL (4.8-10.8)
[2017-10-22 20:47] LABS: C-REACTIVE PROTEIN 3.9 mg/dL (0.0-0.9)
[2017-10-22 22:14] LABS: ERYTHROCYTE SEDIMENTATION RATE 7 mm/hr (0-20)
== END | disposition home or self-care (01) ==
LOC: D.LABREF 16:08
PROVIDERS: Student in an Organized Health Care Education/Training Program
DX: B95.61 Methicillin susceptible Staphylococcus aureus infection as the cause of diseases classified elsewhere (principal); Z51.81 Encounter for therapeutic drug level monitoring; Z79.2 Long term (current) use of antibiotics; M86.9 Osteomyelitis, unspecified

== ENCOUNTER → 2017-10-28 16:33 | Outpatient (CLI) | payer MEDICARE ==
[2017-09-29 11:28] VITALS: BMI 38.0
[2017-10-28 21:23] LABS: BASOPHILS 0.2 % (0-2); EOSINOPHILS 3.5 % (0-7); HEMATOCRIT 31.9 % (42.0-54.0); HEMOGLOBIN 9.9 g/dL (13.5-17.5); IMMATURE GRANULOCYTES 0.7 % (0-5); LYMPHOCYTES 28.6 % (15-50); MCH 30.5 pg (26.0-34.0); MCV 98.2 fL (80.0-100.0); MEAN PLATELET VOLUME 11.3 fL (7.4-10.4); PLATELET COUNT 285 10x3/uL (130-400); RBC 3.25 10x6/uL (4.20-6.10); RDW 13.3 % (11.5-14.5); WBC 9.7 10x3/uL (4.8-10.8)
[2017-10-28 21:50] LABS: C-REACTIVE PROTEIN 5.1 mg/dL (0.0-0.9); CREATININE - SERUM 0.9 mg/dL (0.6-1.3)
[2017-10-28 22:44] LABS: ERYTHROCYTE SEDIMENTATION RATE 14 mm/hr (0-20)
== END | disposition home or self-care (01) ==
LOC: D.LABREF 16:33
PROVIDERS: Student in an Organized Health Care Education/Training Program
DX: Z51.81 Encounter for therapeutic drug level monitoring (principal); Z79.2 Long term (current) use of antibiotics; M86.9 Osteomyelitis, unspecified; A49.01 Methicillin susceptible Staphylococcus aureus infection, unspecified site

== ENCOUNTER → 2017-11-04 12:13 | Outpatient (CLI) | payer MEDICARE ==
[2017-09-29 11:28] VITALS: BMI 38.0
[2017-11-04 12:34] LABS: BASOPHILS 0.2 % (0-2); EOSINOPHILS 1.8 % (0-7); HEMATOCRIT 33.9 % (42.0-54.0); HEMOGLOBIN 10.8 g/dL (13.5-17.5); IMMATURE GRANULOCYTES 0.5 % (0-5); LYMPHOCYTES 28.2 % (15-50); MCH 30.8 pg (26.0-34.0); MCHC 31.9 g/dL (31.0-37.0); MCV 96.6 fL (80.0-100.0); MEAN PLATELET VOLUME 10.9 fL (7.4-10.4); MONOCYTES 15.4 % (2-11); NEUTROPHILS 53.9 % (40-80); PLATELET COUNT 266 10x3/uL (130-400); RBC 3.51 10x6/uL (4.20-6.10); RDW 13.2 % (11.5-14.5); WBC 9.7 10x3/uL (4.8-10.8)
[2017-11-04 12:42] LABS: C-REACTIVE PROTEIN 6.7 mg/dL (0.0-0.9); CREATININE - SERUM 0.8 mg/dL (0.6-1.3)
[2017-11-04 13:36] LABS: ERYTHROCYTE SEDIMENTATION RATE 75 mm/hr (0-20)
== END | disposition home or self-care (01) ==
LOC: D.LDO 12:13 → D.LABREF 12:13
PROVIDERS: Student in an Organized Health Care Education/Training Program
DX: M86.171 Other acute osteomyelitis, right ankle and foot (principal)

== ENCOUNTER → 2017-11-11 16:15 | Outpatient (CLI) | payer MEDICARE ==
[2017-09-29 11:28] VITALS: BMI 38.0
[2017-11-11 18:14] LABS: BASOPHILS 0.3 % (0-2); EOSINOPHILS 1.2 % (0-7); HEMOGLOBIN 10.5 g/dL (13.5-17.5); IMMATURE GRANULOCYTES 0.5 % (0-5); LYMPHOCYTES 21.6 % (15-50); MCH 30.1 pg (26.0-34.0); MCHC 30.9 g/dL (31.0-37.0); MCV 97.4 fL (80.0-100.0); MEAN PLATELET VOLUME 11.3 fL (7.4-10.4); MONOCYTES 8.4 % (2-11); PLATELET COUNT 234 10x3/uL (130-400); RBC 3.49 10x6/uL (4.20-6.10); RDW 13.2 % (11.5-14.5); WBC 9.7 10x3/uL (4.8-10.8)
[2017-11-11 18:50] LABS: C-REACTIVE PROTEIN 2.5 mg/dL (0.0-0.9); CREATININE - SERUM 0.9 mg/dL (0.6-1.3)
[2017-11-11 19:52] LABS: ERYTHROCYTE SEDIMENTATION RATE 45 mm/hr (0-20)
== END | disposition home or self-care (01) ==
LOC: D.LABREF 16:15
PROVIDERS: Student in an Organized Health Care Education/Training Program
DX: M86.9 Osteomyelitis, unspecified (principal)

== ENCOUNTER 2019-01-13 13:53 | Inpatient (IN) | payer MEDICARE ==
[~2019-01-13] VITALS: Ht 182.9 cm; Wt 133.2 kg
[2019-01-13] MEDS ORDERED: STERAPRED 5MG 125 MG PO (14:13)
[2019-01-13] MEDS ORDERED: LASIX40 MG (14:16)
[2019-01-13] MEDS ORDERED: GLIMEPIRIDE4 MG PO (14:16)
[2019-01-13] MEDS ORDERED: LIPITOR20 MG PO (14:16)
[2019-01-13] MEDS ORDERED: LEVEMIR IN100 UNITS/ SC (14:17)
[2019-01-13] MEDS ORDERED: JANUVIA100 MG PO ×2 (14:17→23:44)
[2019-01-13] MEDS ORDERED: TREXALL15 MG IM (14:18)
[2019-01-13] MEDS ORDERED: SINGULAIR10 MG PO (14:18)
[2019-01-13] MEDS ORDERED: STARLIX120 MG PO (14:19)
[2019-01-13] MEDS ORDERED: ZOFRAN4 MG PO (14:19)
[2019-01-13] MEDS ORDERED: K-DUR20 MEQ PO (14:20)
[2019-01-13] MEDS ORDERED: OXYCONTIN60 MG PO (14:20)
--- NOTE | 2019-01-13 14:55 | NUR ---
1450- 1ST SET OF BLOOD CULTURES DRAWN WITH IV START, SECOND SET DRAWN PERIPHERALY.
[2019-01-13 15:01] LABS: HEMATOCRIT 38.7 % (42.0-54.0); MCH 29.3 pg (26.0-34.0); MCHC 33.6 g/dL (31.0-37.0); MCV 87.2 fL (80.0-100.0); MEAN PLATELET VOLUME 12.3 fL (7.4-10.4); RBC 4.44 10x6/uL (4.20-6.10); RDW 14.5 % (11.5-14.5); WBC 2.4 10x3/uL (4.8-10.8)
[2019-01-13 15:02] LABS: PLATELET COUNT 51 10x3/uL (130-400)
[2019-01-13 15:15] LABS: ALBUMIN 2.9 g/dL (3.4-5.0); ANION GAP 10.5 mmol/L (8-16); BILIRUBIN - TOTAL 0.84 mg/dL (0.2-1.3); CARBON DIOXIDE 28.7 mmol/L (21.0-32.0); CREATININE - SERUM 1.3 mg/dL (0.6-1.3); POTASSIUM - SERUM 4.2 mmol/L (3.5-5.1)
--- NOTE | 2019-01-13 15:18 | NUR ---
RETURN TO ROOM #10 FROM RADIOLOGY IN WHEELCHAIR.
[2019-01-13 15:28] LABS: APPEARANCE CLEAR (CLEAR); BILIRUBIN NEGATIVE (NEGATIVE); COLOR YELLOW (YELLOW); GLUCOSE NEGATIVE (NEGATIVE); KETONE NEGATIVE (NEGATIVE); NITRITE NEGATIVE (NEGATIVE); PROTEIN 1+ mg/dL (NEGATIVE); UROBILINOGEN NORMAL (NORMAL)
[2019-01-13 15:30] LABS: BACTERIA FEW /hpf (NONE SEEN); RED CELLS - URINE 0-5 /hpf (0-5); WHITE CELLS - URINE OCC /hpf (0-5)
[2019-01-13 15:51] LABS: EOSINOPHILS 7 % (0-7); LYMPHOCYTES 33 % (15-50); MONOCYTES 13 % (2-11); NEUTROPHILS 42 % (40-80); PLATELET ESTIMATE DECREASED
[2019-01-13 16:19] VITALS: BP 121/60
--- NOTE | 2019-01-13 16:20 | NUR ---
IN RADIOLOGY DEPARTMENT.
--- NOTE | 2019-01-13 19:19 | NUR ---
185- 1ST ATTEMPT TO CALL REPORT, SHIFT CHANGE. 1918- @ND ATTEMPT TO CALL REPORT, RECIEVING NURSE IN ROOM.
--- NOTE | 2019-01-13 19:40 | NUR ---
RECEIVED PT FROM ER VIA W/C. STATES HE HAS CHRONIC PAIN DUE TO RA. AFEBRILE AT THIS TIME. ALERT AND ORIENTED X4. AMBULATORY. RESP SLIGHTLY LABORED. BBS CTA BUT DIMINISHED IN LLL. BLE ARE SCALY AND DISCOLORED. 3RD TOE ON RT FOOT IS AMPUTATED. DRSG NOTED TO LT GREAT TOE WITH WALKING BOOT IN USE. REPORTS PAIN IN NECK AND RT ARM 8. CL IN REACH.
--- NOTE | 2019-01-13 21:30 | NUR ---
IV RESITED TO LT AC WITH 22G AFTER ATTEMPT X2.
[2019-01-13 22:13] VITALS: BP 123/71; BMI 38.7
[2019-01-13] MEDS ORDERED: LEXAPRO20 MG PO (23:41)
[2019-01-13] MEDS ORDERED: LASIX40 MG PO (23:41)
[2019-01-13] MEDS ORDERED: Methotrexate SQ (23:49)
[2019-01-14 00:10] VITALS: BP 105/48
[2019-01-14 04:19] VITALS: BP 146/69
--- NOTE | 2019-01-14 06:19 | NUR ---
PT AUDIBLE CRACKLES AND LETHARGIC. NOTED TO BE COUGHING. REPORTED TO VEDA. NEW ORDERS NOTED FOR LASIX X1. INSERTED 16 FR MAYER CATH WITH IMMEDIATE RETURN OF APOLLO URINE. PT NISHA WELL. RT IN ROOM. INHALER USED. CL IN REACH.
[2019-01-14 07:27] LABS: BASOPHILS 1.8 % (0-2); EOSINOPHILS 0.9 % (0-7); HEMATOCRIT 37.3 % (42.0-54.0); HEMOGLOBIN 12.2 g/dL (13.5-17.5); IMMATURE GRANULOCYTES 1.8 % (0-5); LYMPHOCYTES 38.2 % (15-50); MCHC 32.7 g/dL (31.0-37.0); MCV 88.6 fL (80.0-100.0); MONOCYTES 20.9 % (2-11); NEUTROPHILS 36.4 % (40-80); RBC 4.21 10x6/uL (4.20-6.10); RDW 15.2 % (11.5-14.5); WBC 2.3 10x3/uL (4.8-10.8)
[2019-01-14 07:37] LABS: PLATELET COUNT 44 10x3/uL (130-400)
[2019-01-14 07:55] LABS: ANION GAP 12.6 mmol/L (8-16); CALCIUM 8.8 mg/dL (8.5-10.1); CARBON DIOXIDE 25.6 mmol/L (21.0-32.0); CREATININE - SERUM 1.5 mg/dL (0.6-1.3); MAGNESIUM - SERUM 1.6 mg/dL (1.8-2.4); PHOSPHOROUS 2.5 mg/dL (2.5-4.9); POTASSIUM - SERUM 4.2 mmol/L (3.5-5.1)
--- NOTE | 2019-01-14 08:00 | NUR ---
FEVER OF 102.9, ORALLY, GAVE 650MG OF TYLENOL AND APPLIED ICE PACKS TO UNDERARMS, AND BACK OF NECK, WASH CLOTH TO FOREHEAD. PT LETHARGIC BUT AROUSES TO VOICE. ONLY ABLE TO STATE HIS NAME AND DATE OF WITH GARBLE SPEECH. PT HAD NO TROUBLE SWALLOWING TYLENOL PILLS AT THIS TIME. IVPB VANCOMYCIN HUNG AT THIS TIME VIA LT FA. RT FA IV PATENT AND SL. MAYER CATHETER DRAINING APOLLO URINE TO GRAVITY. MONITOR SHOWING ST WITH RATE OF 114. RESP EVEN AND NONALABORED ON 2L. VITAL SIGNS WITHIN NORMAL OTHER THAN TEMP. CALL LIGHT IN REACH, NAD NOTED,W ILL CONTINUE PLAN OF CARE.
[2019-01-14 08:09] VITALS: BP 111/69; BP 121/59
--- NOTE | 2019-01-14 08:23 | NUR ---
PAGED JALEEL QUINN ABOUT CRITICAL PLATELET COUNT OF 44. WAITING BUSINESS SYSTEMS TECHNICIAN BACK.
--- NOTE | 2019-01-14 08:32 | NUR ---
RECEIVED CALL BACK FROM JALEEL QUINN NOTIFIED HER OF CRITICAL PLATELET COUNT OF 44 AND LOW WBC OF 2.3. NEW ORDER TO CONSULT DR. ALCAZAR.
--- NOTE | 2019-01-14 10:28 | NUR ---
Pt has chronic ulceration on #2 toe on left foot. Current treatment at home is calcium alginate dressing. Recommend continuing with same dressing. Ulcer measures 2cm x 1cm. Wound care will continue monitoring.
[2019-01-14 11:06] VITALS: BP 114/42
--- NOTE | 2019-01-14 11:10 | NUR ---
BLOOD SUGAR OF 288, 6UNITS OF HUMALOG GIVEN AT THIS TIME. PT STILL RUNNING FEVER OF 102.9, APPLIED MORE ICE PACK UNDERARMS AND BACK OF NECK, WET WASH CLOTH TO FOREHEAD. PT STILL LETHARGIC BUT AROUSES TO VOICE. DENIES ANY NEEDS AT THIS TIME. CALL LIGHT IN REACH, WILL CONTINUE TO MONITOR.
--- NOTE | 2019-01-14 11:25 | NUR ---
CALLED JALEEL AND INFORMED HER THAT PT IS STILL RUNNING A FEVER EVEN AFTER TYLENOL GIVEN AND ICE PACKS APPLIED TO PT. ALSO INFORMED HER ABOUT PT BEING LETHARGIC AND WITH GARBLE SPEECH. PER JALEEL QUINN KEEP GIVEN THE TYLENOL FOR FEVER, GIVE DOSE NOW OF TYLENOL AND CONTINUE TO MONITOR PT.
--- NOTE | 2019-01-14 12:21 | NUR ---
HELPED PT TO BATHROOM AND BACK TO BED, PT HAD LARGE BM. PT NOW A/O X4, A LITTLE SOB WITH EXERTION. ON 3L NC. TEMP NOW 99.9 ORALLY. PT FIXING TO EAT LUNCH, DENIES ANY NEEDS AT THIS TIME. CALL LIGHT IN REACH, BEDSIDE RAILS X2, NAD NOTED, WILL CONTINUE TO MONITOR.
[2019-01-14 13:11] VITALS: Ht 182.9 cm; Wt 133.2 kg
[2019-01-14 15:12] VITALS: BP 102/53
--- NOTE | 2019-01-14 16:19 | NUR ---
PT RESTING COMFORTABLY IN BED, DENIES ANY NEEDS AT THIS TIME. CALL LIGHT IN REACH, NAD NOTED,W ILL CONTINUE TO MONITOR.
--- NOTE | 2019-01-14 17:31 | NUR ---
PT HAVING FORM STOOLS DID NOT COLLECT STOOL SAMPLE FOR CDIFF TOXIN AND ATIGEN TIMOTHY BECAUSE LAB WILL NOT ACCEPT FORM STOOL SAMPLES.
--- NOTE | 2019-01-14 18:07 | EC ---
PATIENT:ELIANE GIBSON DATE OF SERVICE: 01/13/19 SEX: M MEDICAL RECORD: [id number] DATE OF : 56 LOCATION:D.M3 D.120 AGE OF PATIENT: 58 ADMISSION DATE: 01/13/19 REFERRING PHYSICIAN: INTERPRETING PHYSICIAN: NINOSKA LEAHY MD ECHOCARDIOGRAM REPORT ECHO CHARGES 4 ECHO COMPLETE Date: 01/14/19 CLINICAL DIAGNOSIS: FLUID OVERLOAD/ ASSESS EF ECHOCARDIOGRAPHIC MEASUREMENTS (adult normal given) AC root (d.<3.7cm) 2.5 cm LV Septum d (<1.2 cm> 1.5 cm Valve Excursion 1.0 cm LV Septum (systole) 1.8 cm Left Atria (s.<4.0cm> 3.7 cm LVPW d(<1.2cm) 1.6 cm RV (d.<2.3cm) 3.2 cm LVPW (sytole) 1.9 cm LV diastole(<5.6CM) 4.7 cm MV E-F(>70mm/sec) cm LV systole 3.2 cm LVOT Diameter 1.7 cm MV exc.(>10mm) 1.1 cm Est.ejection fraction (50-75%) % DOPPLER: LVIT cm/sec A 115 cm/sec E 93.0 cm/sec LA cm/sec RVSP 17 mmHg LVOT 166 cm/sec AOP1/2T m/s Asc. Ao 204 cm/sec RVOT cm/sec RA cm/sec PA cm/sec AV Gradient Peak 16.70mmHg AV Mean 10.26mmHg AV Area 2.2 cm MV Gradient Peak 4.16 mmHg MV Mean 2.68 mmHg MV Area cm COMMENTS: Corrugator: 2 LA GRIFFITHS Teacher'S Aide: 3 Dr. Araya TAPE# PACS Pericardial Effusion N DATE OF SERVICE: 01/14/2019 FINDINGS: 1. Left ventricular chamber size is within normal limits. Left ventricular systolic function is normal. Overall ejection fraction is estimated at 55%. 2. Left atrium, right atrium, and right ventricular chamber size is within normal limits. 3. Valvular structures have normal structure and motion. 4. Doppler interrogation reveals no significant valvular insufficiency or stenosis. Pulmonary systolic pressure is normal, estimated at 17 mmHg. ECHOCARDIOGRAM REPORT [id number] ELIANE GIBSON 5. No evidence of pericardial effusion or left ventricular thrombus. TRANSINT:[id number] Voice Confirmation ID: [id number] DOCUMENT ID: [id number] NINOSKA LEAHY MD at 1807 CC: [id number] DICTATION DATE: 01/14/19 162 SUSTAINMENT LOGISTICS ANALYST: 01/14/19 1716 ADM IN [facility] [address] [place] [address]
--- NOTE | 2019-01-14 19:11 | NUR ---
60MG OF OXYCODONE GIVEN FOR PAIN LEVEL OF 10/10. ALSO EMPTIED OUT MAYER CATHETER. PT DENIES ANY OTHER NEEDS AT THIS TIME. CALL LIGHT IN REACH, NAD NOTED.
[2019-01-14 20:00] VITALS: BP 125/72
--- NOTE | 2019-01-14 20:08 | NUR ---
RECIEVED UP IN BED WITH EYES OPEN AND TV ON. ALERT AND ORIENTED X4. F/C INTACT WITH CLEAR YELLOW URINE DRAINING TO BEDSIDE DRAINAGE SYSTEM. O2@ 3 LITERS PER N/C IN PLACE. IV TO LEFT FA WITH NS AT TKO AND RT FA SL.. TELEMETRY IN PLACE. DSG TO RIGHT AND LEFT FOOT. REQUESTED F/C BE REMOVED. F/C D/C'S PER PT REQUEST. REMAINS IN REVERSE ISOLATION R/T NEUTROPENIA. DENIES ANY OTHER NEEDS.
[2019-01-15 00:23] VITALS: BP 104/48
[2019-01-15 04:00] VITALS: BP 102/70
[2019-01-15 06:19] LABS: CALCIUM 8.8 mg/dL (8.5-10.1); CARBON DIOXIDE 27.6 mmol/L (21.0-32.0); MAGNESIUM - SERUM 1.8 mg/dL (1.8-2.4); POTASSIUM - SERUM 4.6 mmol/L (3.5-5.1); VANCOMYCIN - TROUGH 29.9 ug/mL (10.0-20.0)
[2019-01-15 06:21] LABS: CREATININE - SERUM 2.1 mg/dL (0.6-1.3)
[2019-01-15 07:16] LABS: HEMATOCRIT 36.7 % (42.0-54.0); HEMOGLOBIN 11.9 g/dL (13.5-17.5); MCH 29.2 pg (26.0-34.0); MCHC 32.4 g/dL (31.0-37.0); RBC 4.08 10x6/uL (4.20-6.10); RDW 15.9 % (11.5-14.5)
[2019-01-15 07:18] LABS: WBC 14.4 10x3/uL (4.8-10.8)
[2019-01-15 07:19] LABS: PLATELET COUNT 48 10x3/uL (130-400)
[2019-01-15 07:34] VITALS: BP 101/45
[2019-01-15 08:16] LABS: HEPATITIS C ANTIBODY <0.1 S/CO RAT (0.0-0.9)
[2019-01-15 08:39] LABS: ANISOCYTOSIS OCC; LYMPHOCYTES 23 % (15-50); MONOCYTES 8 % (2-11); NEUTROPHILS 47 % (40-80); PLATELET ESTIMATE DECREASED
--- NOTE | 2019-01-15 08:59 | NUR ---
I CALLED AND CHECKED WITH SUPA IN THE PHARMACY R/T VANC. TROUGH. HE HAS ALREADY LOOKED AT THE RESULT AND ADJUSTED THE VANC. DOSE.
--- NOTE | 2019-01-15 09:16 | NUR ---
COMPLETE LINEN CHANGE WHILE PATIENT IS IN RESTROOM. DR ALCAZAR HERE AND SAYS PATIENT CAN COME OUT OF ISOLATION.
--- NOTE | 2019-01-15 09:19 | NUR ---
PAGE INTO [facility] R/T B/P 101/45 AND LASIX TO BE GIVEN OR HELD. AWAITING CALL BACK.
--- NOTE | 2019-01-15 09:39 | NUR ---
NO CALL BACK FROM [facility] QU[facility] AT THIS TIME. PAGED AGAIN R/T B/P AND TREVIN.
--- NOTE | 2019-01-15 09:44 | NUR ---
PER DR CACERES AND DR SAUL, PATIENT CAN COME OUT OF ISOLATION.
[2019-01-15 11:10] VITALS: BP 122/51
--- NOTE | 2019-01-15 11:34 | NUR ---
TEMP IS 99.8 ORAL. TYLENOL GIVEN AND PATIENT IS ENCOURAGED TO TAKE DEEP BREATHS AND COUGH. DOES WELL WITH THIS.
--- NOTE | 2019-01-15 11:42 | NUR ---
DRESSING TO LEFT SECOND TOE CHANGED ORDERED. 0.5 CM X 0.5 CM DARK SPOT, NO SCAB SEEN. TOLERATED WELL. WAITING ON MRI TO COME TAKE PATIENT SO IV ABX CAN BE INFUSED.
--- NOTE | 2019-01-15 11:54 | NUR ---
TO MRI VIA WHEELCHAIR AND PORTABLE OXYGEN.
--- NOTE | 2019-01-15 12:45 | NUR ---
STILL OUT OF ROOM FOR MRI.
--- NOTE | 2019-01-15 13:11 | NUR ---
1310-RETURNS FROM MRI, FACE IS RED. VERY SLEEPY LIKE. AROUSED EASILY AND PLACED BACK ON HEART MONITOR. ENCOURGED TO EAT. WILL MONITOR CLOSELY.
--- NOTE | 2019-01-15 14:28 | NUR ---
BED BATH GIVEN BY . GOWN CHANGED BY MYSELF. DENIES FURTHER NEEDS.
[2019-01-15 15:24] VITALS: BP 116/55
--- NOTE | 2019-01-15 18:00 | NUR ---
RESTING WITH EYES CLOSED, RESP EVEN. AROUSES TO SPEECH AND TOUCH.
[2019-01-15 20:44] VITALS: BP 140/70
--- NOTE | 2019-01-15 21:35 | NUR ---
TEMP 101.0 PROVIDED TYLENOL 650MG
[2019-01-16] VITALS: BP 138/60
[2019-01-16 04:08] VITALS: BP 140/77
[2019-01-16 06:20] LABS: INR 1.26 (0.85-1.17); PROTIME 15.2 SECONDS (11.6-15.0)
[2019-01-16 06:33] LABS: ALBUMIN 2.4 g/dL (3.4-5.0); ANION GAP 15.4 mmol/L (8-16); BILIRUBIN - DIRECT 0.83 mg/dL (0.00-0.30); BILIRUBIN - INDIRECT 0.36 mg/dL (0.00-1.00); BILIRUBIN - TOTAL 1.19 mg/dL (0.2-1.3); CALCIUM 8.3 mg/dL (8.5-10.1); CARBON DIOXIDE 21.4 mmol/L (21.0-32.0); MAGNESIUM - SERUM 1.7 mg/dL (1.8-2.4); POTASSIUM - SERUM 4.8 mmol/L (3.5-5.1); PROTEIN - SERUM 6.5 g/dL (6.4-8.2)
[2019-01-16 06:35] LABS: CREATININE - SERUM 1.3 mg/dL (0.6-1.3); PHOSPHOROUS 2.1 mg/dL (2.5-4.9)
[2019-01-16 06:46] LABS: BASOPHILS 0.4 % (0-2); EOSINOPHILS 0.3 % (0-7); HEMATOCRIT 35.2 % (42.0-54.0); HEMOGLOBIN 11.6 g/dL (13.5-17.5); IMMATURE GRANULOCYTES 0.7 % (0-5); LYMPHOCYTES 26.7 % (15-50); MCH 28.9 pg (26.0-34.0); MONOCYTES 8.1 % (2-11); NEUTROPHILS 63.8 % (40-80); RBC 4.01 10x6/uL (4.20-6.10); WBC 17.4 10x3/uL (4.8-10.8)
[2019-01-16 06:47] LABS: MCV 87.8 fL (80.0-100.0)
[2019-01-16 06:48] LABS: PLATELET COUNT 77 10x3/uL (130-400)
--- NOTE | 2019-01-16 07:00 | NUR ---
ASSESSMENT DONE. NO DISTRESS. DRY PURPLE APPEARANCE TO BILATERAL LOWER EXTREMITIES BEGINNING AT THE FORRESTER AND ENDING AT THE ANKLE. RESPIRATIONS EVEN AND UNLABORED. O2 AT 4L NC. DISORIENTED TO TIME AND SITUATION. WILL CONTINUE TO MONITOR.
[2019-01-16 08:46] VITALS: BP 165/74
--- NOTE | 2019-01-16 09:50 | MORECARE ---
CASE MANAGEMENT DISCHARGE SUMMARY PATIENT: ELIANE OCASIO A UNIT: [id number] ADM DATE: 01/13/19 AGE: 58 : 56 SEX: M ROOM/BED: D.1204 AUTHOR: JAMES ROSA PHYSICIAN: REFERRING PHYSICIAN: CHRIST MCNALLY MD DATE OF SERVICE: 01/16/19 Discharge Plan Patient Name: ELIANE OCASIO Facility: [facility]:[place] : 1960 Planned Disposition: Home Anticipated Discharge Date: Discharge Date: Expected LOS: Initial Reviewer: [email or web address] Initial Review Date: 01/13/2019 Generated: 01/16/19 10:50 am Comments DCP- Discharge Planning Updated by [email or web address]: Adriana Gimenez on 01/15/19 12:[address] CM TO SEE THE PATIENT FOR DISCHARGE PLANNING INITIAL ASSESSMENT. PATIENT WAS NOT IN HIS ROOM. HAVING A MRI OF HIS LEFT FOOT. WILL REVISIT. DCPIA - Discharge Planning Initial Assessment Updated by [email or web address]: Adriana Gimenez on 01/16/19 9:48 am * Is the patient Alert and Oriented? Yes * How many steps to enter\exit or inside your home? ramp * PCP DR Phan Choudhury * Pharmacy Cannot recall * Preadmission Environment Home with Family * ADLs Partial Dependent * Partial ADLs (Assistance needed) Medication Management * List name and contact numbers for known caregivers / representatives who currently or will assist patient after discharge: Ashwini Ocasio - - [phone] * Verbal permission to speak to the caregivers and representatives has been obtained from the patient. Yes * Community resources currently utilized None * Please name any agencies selected above. denies any services [facility] in 2018 [place] for home IVAB therapy * Additional services required to return to the preadmission environment? Yes * Can the patient safely return to the preadmission environment? Yes * Has this patient been hospitalized within the prior 30 days at any hospital? No Patient Name: ELIANE OCASIO Page 34645 at 0950 All edits/amendments must be made on the electronic document DICTATION DATE: 01/16/19948 DEBURRING AND TOOLING MACHINE OPERATOR: RICK 01/16/19948 RPT#: [id number] DC DATE: STATUS: ADM IN [facility] [address] [place] [address] END OF REPORT
--- NOTE | 2019-01-16 10:03 | MORECARE ---
CASE MANAGEMENT DISCHARGE SUMMARY PATIENT: ELIANE OCASIO UNIT: [id number] ADM DATE: 01/13/19 AGE: 58 : 56 SEX: M ROOM/BED: D.1204 AUTHOR: MOE,DOC PHYSICIAN: REFERRING PHYSICIAN: CHRIST MCNALLY MD DATE OF SERVICE: 01/16/19 Discharge Plan Patient Name: ELIANE OCASIO Facility: [facility]:[place] : 1960 Planned Disposition: Home Anticipated Discharge Date: Discharge Date: Expected LOS: Initial Reviewer: [email or web address] Initial Review Date: 01/13/2019 Generated: 01/16/19 11:03 am Comments DCP- Discharge Planning Updated by [email or web address]: Adriana Gimenez on 01/16/19 9:[address] CM VISITED W/ THE PATIENT THIS AM. HE WAS SITTING ON THE SIDE OF THE BED. HAD BEEN IN EARLIER AND HE WAS AMBULATING THE SHORT DISTANCE TO THE BATHROOM. HE HAS NASAL O2 AT 3/L. CM EXPLAINED MY ROLE. ADVISED I WOULD LIKE TO DO INITIAL ASSESSMENT FOR POTENTIAL DISCHARGE NEEDS. HE GAVE CM PERMISSION TO CONTINUE. THE PATIENT SEEMS LETHARGIC. SPEAKS VERY LOW AND SOFTLY. HAD SOME DIFFICULTY ANSWERING QUESTIONS. PCP- [facility]- PATIENT COULD NOT RECALL. STATED HE LIVED WITH HIS AND 18 YEAR OLD SON. HE GAVE A CONFUSING ANSWER REGARDING STEPS TO ENTER THE HOME. CM ASK PERMISSION TO SPEAK WITH HIS . HE CONSENTED. STATED SHE MAYBE AT WORK. CM TO CONTACT THE TO COMPLETE ASSESSMENT. DCP- Discharge Planning Updated by [email or web address]: Adriana Gimenez on 01/15/19 12:[address] CM TO SEE THE PATIENT FOR DISCHARGE PLANNING INITIAL ASSESSMENT. PATIENT WAS NOT IN HIS ROOM. HAVING A MRI OF HIS LEFT FOOT. WILL REVISIT. DCPIA - Discharge Planning Initial Assessment Updated by [email or web address]: Adriana Gimenez on 01/16/19 9:48 am * Is the patient Alert and Oriented? Yes * How many steps to enter\exit or inside your home? ramp * PCP DR Phan Barahona * Pharmacy Cannot recall * Preadmission Environment Home with Family * ADLs Partial Dependent * Partial ADLs (Assistance needed) Medication Management * List name and contact numbers for known caregivers / representatives who currently or will assist patient after discharge: Ashwini Ocasio - - [phone] * Verbal permission to speak to the caregivers and representatives has been obtained from the patient. Yes * Community resources currently utilized None * Please name any agencies selected above. denies any services [facility] in 2018 [place] for home IVAB therapy * Additional services required to return to the preadmission environment? Yes * Can the patient safely return to the preadmission environment? Yes * Has this patient been hospitalized within the prior 30 days at any hospital? No Last DP export: 01/16/19 8:50 a Patient Name: ELIANE OCASIO Page 32672 at 1003 All edits/amendments must be made on the electronic document DICTATION DATE: 01/16/19 100 [employer]: RICK 01/16/19 1003 RPT#: [id number] DC DATE: STATUS: ADM IN [facility] [address] [place] [address] END OF REPORT
--- NOTE | 2019-01-16 11:30 | NUR ---
ENTERIC ISOLATION INITIATED
[2019-01-16 13:53] VITALS: BP 123/93
--- NOTE | 2019-01-16 15:47 | MORECARE ---
CASE MANAGEMENT DISCHARGE SUMMARY PATIENT: ELIANE OCASIO UNIT: [id number] ADM DATE: 01/13/19 AGE: 58 : 56 SEX: M ROOM/BED: D.1204 AUTHOR: MOE,DOC PHYSICIAN: REFERRING PHYSICIAN: CHRIST MCNALLY MD DATE OF SERVICE: 01/16/19 Discharge Plan Patient Name: ELIANE OCASIO Facility: [facility]:[place] : 1960 Planned Disposition: Home Anticipated Discharge Date: Discharge Date: Expected LOS: Initial Reviewer: [email or web address] Initial Review Date: 01/13/2019 Generated: 01/16/19 4:46 pm Comments DCP- Discharge Planning Updated by [email or web address]: Adriana Gimenez on 01/16/19 2:[address] CM spoke with patient's this early afternoon when she called to speak with the nurse. He had given permission to speak with his . Patient obtains his medications from [facility] in [facility]. He had ambulated w/ a cane but he may need surgery on his right shoulder and it had been painful to use the cane. He is fairly independent. She assist with meds.by filling his med box for the week. He has an 18 year old grandson that lives with them and assist. She states the discharge plan is to home w/ family. CM advised case management is available to assist if any discharge needs or home health care needs should arise. Patient is C Diff Positive. Placed on isolation today. DCP- Discharge Planning Updated by [email or web address]: Adriana Gimenez on 01/16/19 9:[address] CM VISITED W/ THE PATIENT THIS AM. HE WAS SITTING ON THE SIDE OF THE BED. HAD BEEN IN EARLIER AND HE WAS AMBULATING THE SHORT DISTANCE TO THE BATHROOM. HE HAS NASAL O2 AT 3/L. CM EXPLAINED MY ROLE. ADVISED I WOULD LIKE TO DO INITIAL ASSESSMENT FOR POTENTIAL DISCHARGE NEEDS. HE GAVE CM PERMISSION TO CONTINUE. THE PATIENT SEEMS LETHARGIC. SPEAKS VERY LOW AND SOFTLY. HAD SOME DIFFICULTY ANSWERING QUESTIONS. PCP- [facility]- PATIENT COULD NOT RECALL. STATED HE LIVED WITH HIS AND 18 YEAR OLD SON. HE GAVE A CONFUSING ANSWER REGARDING STEPS TO ENTER THE HOME. CM ASK PERMISSION TO SPEAK WITH HIS . HE CONSENTED. STATED SHE MAYBE AT WORK. CM TO CONTACT THE TO COMPLETE ASSESSMENT. DCP- Discharge Planning Updated by [email or web address]: Adriana Gimenez on 01/15/19 12:[address] CM TO SEE THE PATIENT FOR DISCHARGE PLANNING INITIAL ASSESSMENT. PATIENT WAS NOT IN HIS ROOM. HAVING A MRI OF HIS LEFT FOOT. WILL REVISIT. DCPIA - Discharge Planning Initial Assessment Updated by [email or web address]: Adriana Gimenez on 01/16/19 9:48 am * Is the patient Alert and Oriented? Yes * How many steps to enter\exit or inside your home? ramp * PCP DR Phan Barahona * Pharmacy Cannot recall * Preadmission Environment Home with Family * ADLs Partial Dependent * Partial ADLs (Assistance needed) Medication Management * List name and contact numbers for known caregivers / representatives who currently or will assist patient after discharge: Ashwini Ocasio - - [phone] * Verbal permission to speak to the caregivers and representatives has been obtained from the patient. Yes * Community resources currently utilized None * Please name any agencies selected above. denies any services [facility] in 2018 [place] for home IVAB therapy * Additional services required to return to the preadmission environment? Yes * Can the patient safely return to the preadmission environment? Yes * Has this patient been hospitalized within the prior 30 days at any hospital? No Last DP export: 01/16/19 9:03 a Patient Name: ELIANE OCASIO Page 33255 at 1547 All edits/amendments must be made on the electronic document DICTATION DATE: 01/16/19 1546 WET FINISHER: RICK 01/16/19 1546 RPT#: [id number] DC DATE: STATUS: ADM IN [facility] [address] [place] [address] END OF REPORT
--- NOTE | 2019-01-16 18:12 | NUR ---
I have reviewed this patient and I concur with the Shift Assessment completed by the Licensed Practical Nurse today this shift.
--- NOTE | 2019-01-16 18:13 | NUR ---
PT O2 SAT 86 AND 87. RESPIRATORY CALLED. PRN TREATMENT BEING GIVEN.
--- NOTE | 2019-01-16 18:30 | NUR ---
ADARSH HARRIS NOTIFIED OF DECREASING LOC IN PT. TEMP 101.7 F ORAL. TYLENOL GIVEN PER ORDER. PULSE 120. IV D/C CATHETER INTACT. IV RESITED TO R HAND X1 STICK.
[2019-01-16 19:34] VITALS: BP 140/69
[2019-01-16 19:42] LABS: HEMATOCRIT 33.2 % (42.0-54.0); MCH 29.3 pg (26.0-34.0); MCHC 33.1 g/dL (31.0-37.0); MCV 88.3 fL (80.0-100.0); MEAN PLATELET VOLUME 12.8 fL (7.4-10.4); RBC 3.76 10x6/uL (4.20-6.10); RDW 16.3 % (11.5-14.5)
[2019-01-16 19:44] LABS: PLATELET COUNT 104 10x3/uL (130-400)
[2019-01-16 19:56] LABS: ALBUMIN 2.2 g/dL (3.4-5.0); ANION GAP 13.6 mmol/L (8-16); BILIRUBIN - TOTAL 1.22 mg/dL (0.2-1.3); CALCIUM 8.5 mg/dL (8.5-10.1); CARBON DIOXIDE 24.2 mmol/L (21.0-32.0); CREATININE - SERUM 1.1 mg/dL (0.6-1.3); POTASSIUM - SERUM 4.8 mmol/L (3.5-5.1); PROTEIN - SERUM 6.1 g/dL (6.4-8.2)
[2019-01-16 20:34] LABS: LYMPHOCYTES 24 % (15-50); MONOCYTES 1 % (2-11); NEUTROPHILS 73 % (40-80); PLATELET ESTIMATE DECREASED
[2019-01-16 22:26] VITALS: BP 151/80
--- NOTE | 2019-01-17 00:12 | NUR ---
ASSESSED AT THE BEGINNING OF THE SHIFT. PT WAS UP IN BATHROOM AND VOIDED ALL OVER THE FLOOR. IT WAS CLEANED UP AND HE WAS ASSISTED BACK TO BED. HE IS ABLE TO CALL FOR HELP BUT IS A LITTLE LETHARGIC AND DOSENT USE HIS CALL LIGHT. THE NEXT HE GOT UP WE ASSISTED HIM WITH OBTAINING A URINE SAMPLE FOR LAB AND PUT A GABRIELLA ON THE BED SO WE WOULD KNOW WHEN HE WAS GETTING UP. HE WAS ASKING FOR PAIN MEDS AND THEN QUICKLY WENT BACK TO SLEEP. THE NEXT TIME HE GOT UP WE TOOK HIM TO THE BATHROOM TO HAVE A BM AND THEN WHEN HE ASKED FOR PAIN MEDS WE TOOK PERCOCET WHICH HE GOT MAD ABOUT AND REFUSED. HE DEMANDED HIS STRONGER MED 60 MG AND AFTER HE GOT IT WENT BACK TO SLEEP. HE STATED HE WAS USED TO THIS AMT OF MED AND IT WOULD NOT MAKE HIM HIGH. HE WAS TOLD THAT WE WERE NOT WORRIED ABOUT HIM GETTING HIGH BUT ABOUT KILLING HIM WITH SUCH A HIGH DOSE. THIS HE BLEW OFF. WILL CONTINUE TO MONITOR.
[2019-01-17 04:13] VITALS: BP 135/87
[2019-01-17 07:05] LABS: BASOPHILS 0.3 % (0-2); HEMATOCRIT 34.5 % (42.0-54.0); IMMATURE GRANULOCYTES 1.1 % (0-5); LYMPHOCYTES 29.3 % (15-50); MCH 28.5 pg (26.0-34.0); MCHC 31.9 g/dL (31.0-37.0); MCV 89.4 fL (80.0-100.0); MEAN PLATELET VOLUME 12.3 fL (7.4-10.4); MONOCYTES 9.8 % (2-11); NEUTROPHILS 58.5 % (40-80); RBC 3.86 10x6/uL (4.20-6.10); WBC 17.7 10x3/uL (4.8-10.8)
[2019-01-17 07:06] LABS: ANION GAP 11.4 mmol/L (8-16); CALCIUM 8.5 mg/dL (8.5-10.1); CARBON DIOXIDE 25.3 mmol/L (21.0-32.0); CREATININE - SERUM 1.2 mg/dL (0.6-1.3); PHOSPHOROUS 2.2 mg/dL (2.5-4.9); PLATELET COUNT 131 10x3/uL (130-400); POTASSIUM - SERUM 4.7 mmol/L (3.5-5.1)
[2019-01-17 08:03] VITALS: BP 110/76
--- NOTE | 2019-01-17 08:19 | NUR ---
IN ENTERIC ISOLATION. ON 2.5 L PER NC WITH ECO2 MONITOR ON. RIGHT HAND PIV SEEN WITH NS INUFISNG AT 100 CC/HR. ON HEART MONITOR SHOWING ST, HR 112. GENERALIZED EDEMA TO ALL EXTREMITIES. ON EP, PHOS IS 2.2, WILL COVER WITH SUPPLEMENTS. MAG AND K+ ARE GOOD. GABRIELLA MAT ALARM IS ON AND IN USE.
[2019-01-17 11:51] VITALS: BP 114/73
--- NOTE | 2019-01-17 13:04 | NUR ---
PAGE INTO JALEEL QUINN APN TO SEE IF WE CAN ORDER SOME ABS'S PATIENT IS ON AN ECO2 MONITOR AND GETS VERY LETHARGIC.
--- NOTE | 2019-01-17 13:43 | NUR ---
I TALKED TO JALEEL QUINN APN TO SEE ABOUT ORDERING SOME ABG'S PATIENT DOES NOT WEAR ANY O2 AT HOME AND BECOMES VERY LETHARGIC AT TIMES EVEN WITH THE ECO2 ON. NEW ORDERS RECEIVED.
[2019-01-17 15:43] VITALS: BP 148/96
--- NOTE | 2019-01-17 16:56 | NUR ---
ASSISTED TO RESTROOM TO HAVE BM (JUST PASSED GAS) AND TO VOID.
--- NOTE | 2019-01-17 17:31 | NUR ---
CALLED [employer], FABIAN BRANTLEY FOR ONE TIME DOSE OF STEROIDS.
--- NOTE | 2019-01-17 19:23 | NUR ---
PATIENT RESTING IN BED WITH EYES CLOSED AND NO S/S OF DISTRESS. BED IN LOWEST POSITION AND CALL LIGHT WITHIN REACH. WILL CONTINUE TO MONITOR.
--- NOTE | 2019-01-17 19:37 | NUR ---
ASSISTED PATIENT TO THE RESTROOM WITH MINIMAL STANDBY ASSIST. PATIENT REQUESTED PRIVACY WHILE USING THE RESTROOM. I INSTRUCTED THE PATIENT ON USING THE CORD WHEN FINISHED AND NOT TO GET UP BY HIMSELF. THE PATIENT RETURNED DEMONSTRATION AND VERBALIZED UNDERSTANDING.
--- NOTE | 2019-01-17 19:47 | NUR ---
PATIENT SHORT OF BREATH WITH O2 90%. PATIENT REQUESTED RT BE CALLED FOR HIS INHALER. SPOKE WITH RT JOSIE AND NOTIFIED HIM OF PATIENT'S REQUEST.
--- NOTE | 2019-01-17 19:51 | NUR ---
PATIENT REQUESTED OXYCONTIN FOR PAIN. I EXPLAINED TO THE PATIENT [facility] HE HAS BEEN VERY TIRED THROUGHOUT THE DAY AND ASKED HIM IF HE WOULD LIKE TO WAIT ON HIS PAIN MEDICATION. THE PATIENT STATED "I AM IN PAIN ALL THE TIME AND I WANT MY PAIN MEDICATION. THEY ARE TREATING ME LIKE I AM A GROUP HOME PATIENT AND I'M NOT". THE PATIENT IS ALERT, ORIENTED, AND FULLY AWAKE AT THIS TIME. I EXPLAINED TO THE PATIENT THAT IT IS NOT THE INTENTION OF ANYONE TO MAKE HIM FEEL LIKE HE IS A "GROUP HOME PATIENT" AND THAT WE ARE TRYING TO TAKE PRECAUTIONS TO ENSURE HIS SAFETY. THE PATIENT VERBALIZED UNDERSTANDING AND STATED THAT HE WOULD LIKE TO TAKE HIS OXYCONTIN WITH HIS NIGHT TIME MEDICATIONS.
[2019-01-18] VITALS: BP 138/79
[2019-01-18 04:34] LABS: HEMATOCRIT 33.9 % (42.0-54.0); IMMATURE GRANULOCYTES 2.2 % (0-5); MCH 28.9 pg (26.0-34.0); MCHC 32.4 g/dL (31.0-37.0); MCV 89.2 fL (80.0-100.0); MEAN PLATELET VOLUME 11.2 fL (7.4-10.4); RDW 17.1 % (11.5-14.5)
[2019-01-18 04:35] LABS: PLATELET COUNT 183 10x3/uL (130-400); WBC 12.9 10x3/uL (4.8-10.8)
[2019-01-18 04:54] LABS: CALC OSMOLALITY 288 mosm/kg (275-300); CALCIUM 8.3 mg/dL (8.5-10.1); CARBON DIOXIDE 24.1 mmol/L (21.0-32.0); CHLORIDE - SERUM 105 mmol/L (98-107); EOSINOPHILS 1 % (0-7); GLUCOSE 312 mg/dL (74-106); LYMPHOCYTES 17 % (15-50); MAGNESIUM - SERUM 1.8 mg/dL (1.8-2.4); MONOCYTES 5 % (2-11); NEUTROPHILS 72 % (40-80); PHOSPHOROUS 2.1 mg/dL (2.5-4.9); SODIUM 138 mmol/L (136-145); UREA NITROGEN 16 mg/dL (7-18); eGFR NON AFRICAN AMERICAN 81 mL/min (90-120)
[2019-01-18 04:56] LABS: POTASSIUM - SERUM 5.7 mmol/L (3.5-5.1)
[2019-01-18 07:28] VITALS: BP 167/90
--- NOTE | 2019-01-18 08:44 | NUR ---
ASSISSTED PATIENT TO RESTROOM.TIDY ROOM WHILE WAITNG. ASSISSTED PT BACK TO BED TURNED BED ALARM ON. HELPED PT FILL OUT MENU. BED IN LOW POSITION CALL LIGHT IN REACH. PT DENIES NEEDS AT THIS TIME.
[2019-01-18 11:12] VITALS: BP 160/87
--- NOTE | 2019-01-18 19:32 | NUR ---
RESPONDED TO PATIENT'S CALL LIGHT. BROUGHT PATIENT ICE PER HIS REQUEST. PATIENT DENIES OTHER NEEDS AT THIS TIME. BED IN LOWEST POSITION AND CALL LIGHT WITHIN REACH. ENCOURAGED THE PATIENT TO CALL IF HE HAS NEEDS. WILL CONTINUE TO MONITOR.
[2019-01-18 20:19] VITALS: BP 163/79
[2019-01-19] VITALS: BP 140/86
[2019-01-19 04:47] VITALS: BP 141/82
--- NOTE | 2019-01-19 07:02 | NUR ---
PATIENT RESTING WITH EYES CLOSED UPON ENTERING THE ROOM. WOKE UP AND REQUESTED PAIN MEDICATION. REPORTED TOT HE PATIENT THAT HE WOULD HAVE TO WAIT FOR 1 HOUR BEFOR I COULD ADMINISTER IT. PATIENT SAID THAT THIS WAS OK. IV TO THE L FOREARM INTACT AND INFUSING. O2 AT 5L. PATIENT WITH NO COMPLAINTS AT THIS TIME. BED IN LOW POSITION CALL LIGHT IN REACH. PATIENT DENIES NEEDS AT THIS TIME.
--- NOTE | 2019-01-19 09:02 | NUR ---
PATIENT REQUESTED PAIN MEDICATION. I BROGHT IN PAIN MEDICATION AND THE PATIENT ASKED WHY AM I NOT GETTING THIS THREE TIMES A DAY? I EDUCATED THE PATIENT ON THE ORDER IT STATES PRN. THE PATIENT WAS VERY UPSET STATING THIS IS NOT HOW IT WAS IN THE BEGINING. THE PATEINT REQUESTS TO SPEAK WITH A DOCTOR CONCERNING THIS MATTER.
[2019-01-19 11:39] VITALS: BP 137/73
--- NOTE | 2019-01-19 14:14 | NUR ---
UP IN HALLWY WITH THERAPY
[2019-01-19 16:01] VITALS: BP 143/81
--- NOTE | 2019-01-19 19:43 | NUR ---
PT IN BED. DENIES NEEDS AT THIS TIME.
[2019-01-19 20:00] VITALS: BP 152/96
[2019-01-20] VITALS: BP 141/86
[2019-01-20 04:00] VITALS: BP 146/89
[2019-01-20 07:26] LABS: BASOPHILS 0.3 % (0-2); EOSINOPHILS 1.6 % (0-7); HEMATOCRIT 32.6 % (42.0-54.0); HEMOGLOBIN 10.2 g/dL (13.5-17.5); IMMATURE GRANULOCYTES 4.1 % (0-5); LYMPHOCYTES 29.4 % (15-50); MCH 28.5 pg (26.0-34.0); MCHC 31.3 g/dL (31.0-37.0); MCV 91.1 fL (80.0-100.0); MEAN PLATELET VOLUME 10.9 fL (7.4-10.4); MONOCYTES 15.3 % (2-11); NEUTROPHILS 49.3 % (40-80); RBC 3.58 10x6/uL (4.20-6.10); RDW 17.2 % (11.5-14.5); WBC 11.8 10x3/uL (4.8-10.8)
[2019-01-20 07:28] LABS: PLATELET COUNT 331 10x3/uL (130-400)
[2019-01-20 07:57] LABS: ALBUMIN 2.4 g/dL (3.4-5.0); ANION GAP 10.9 mmol/L (8-16); BILIRUBIN - TOTAL 0.49 mg/dL (0.2-1.3); CALCIUM 8.3 mg/dL (8.5-10.1); CARBON DIOXIDE 25.6 mmol/L (21.0-32.0); CREATININE - SERUM 1.2 mg/dL (0.6-1.3); POTASSIUM - SERUM 4.5 mmol/L (3.5-5.1); PROTEIN - SERUM 6.8 g/dL (6.4-8.2)
--- NOTE | 2019-01-20 08:30 | NUR ---
AM MEDS GIVEN AT THIS TIME, PT A/O X4, A LITTLE SOB WITH EXERTION ON 4L NC. LT FA IV INFUSING NS AT 100CC/HR. PT EATING BREAKFAST AT THIS TIME, DENIES ANY NEEDS, CALL LIGHT IN REACH, NAD NOTED,W ILL CONTINUE PLAN OF CARE.
[2019-01-20 08:36] VITALS: BP 154/84
--- NOTE | 2019-01-20 09:48 | NUR ---
PROVIDED TEACHING TO PT ABOUT NEEDING A RESP CULTURE, PROVIDED PT WITH COLLECTION CUP. PT VERBALIZED UNDERSTANDING.
--- NOTE | 2019-01-20 11:18 | NUR ---
BLOOD SUGAR OF 184, 4UNITS GIVEN PER S/S. PT RESTING COMFORTALY, MARILYN ANY NEEDS AT THIS TIME, CALL LIGHT IN REACH, NAD NOTED, WILL CONTINUE TO MONITOR.
[2019-01-20 11:20] VITALS: BP 198/112
--- NOTE | 2019-01-20 11:30 | NUR ---
BP HIGH NOTIFIED ALESSANDRO HERNANDEZ. NEW ORDER FOR LOVELY TO GIVE NOW.
--- NOTE | 2019-01-20 13:55 | MORECARE ---
CASE MANAGEMENT DISCHARGE SUMMARY PATIENT: ELIANE OCASIO UNIT: [id number] ADM DATE: 01/13/19 AGE: 58 : 56 SEX: M ROOM/BED: D.1204 AUTHOR: MOE,DOC PHYSICIAN: REFERRING PHYSICIAN: CHRIST MCNALLY MD DATE OF SERVICE: 01/20/19 Discharge Plan Patient Name: ELIANE OCASIO Facility: [facility]:[place] : 1960 Planned Disposition: Home Anticipated Discharge Date: Discharge Date: Expected LOS: Initial Reviewer: [email or web address] Initial Review Date: 01/13/2019 Generated: 01/20/19 2:55 pm DCP- Discharge Planning Updated by [email or web address]: Adriana Gimenez on 01/16/19 2:[address] CM spoke with patient's this early afternoon when she called to speak with the nurse. He had given permission to speak with his . Patient obtains his medications from [facility] in [facility]. He had ambulated w/ a cane but he may need surgery on his right shoulder and it had been painful to use the cane. He is fairly independent. She assist with meds.by filling his med box for the week. He has an 18 year old grandson that lives with them and assist. She states the discharge plan is to home w/ family. CM advised case management is available to assist if any discharge needs or home health care needs should arise. Patient is C Diff Positive. Placed on isolation today. DCP- Discharge Planning Updated by [email or web address]: Adriana Gimenez on 01/16/19 9:[address] CM VISITED W/ THE PATIENT THIS AM. HE WAS SITTING ON THE SIDE OF THE BED. HAD BEEN IN EARLIER AND HE WAS AMBULATING THE SHORT DISTANCE TO THE BATHROOM. HE HAS NASAL O2 AT 3/L. CM EXPLAINED MY ROLE. ADVISED I WOULD LIKE TO DO INITIAL ASSESSMENT FOR POTENTIAL DISCHARGE NEEDS. HE GAVE CM PERMISSION TO CONTINUE. THE PATIENT SEEMS LETHARGIC. SPEAKS VERY LOW AND SOFTLY. HAD SOME DIFFICULTY ANSWERING QUESTIONS. PCP- [facility]- PATIENT COULD NOT RECALL. STATED HE LIVED WITH HIS AND 18 YEAR OLD SON. HE GAVE A CONFUSING ANSWER REGARDING STEPS TO ENTER THE HOME. CM ASK PERMISSION TO SPEAK WITH HIS . HE CONSENTED. STATED SHE MAYBE AT WORK. CM TO CONTACT THE TO COMPLETE ASSESSMENT. DCP- Discharge Planning Updated by [email or web address]: Adriana Gimenez on 01/15/19 12:[address] CM TO SEE THE PATIENT FOR DISCHARGE PLANNING INITIAL ASSESSMENT. PATIENT WAS NOT IN HIS ROOM. HAVING A MRI OF HIS LEFT FOOT. WILL REVISIT. DCPIA - Discharge Planning Initial Assessment Updated by [email or web address]: Adriana Gimenez on 01/16/19 9:48 am * Is the patient Alert and Oriented? Yes * How many steps to enter\exit or inside your home? ramp * PCP DR Phan Barahona * Pharmacy Cannot recall * Preadmission Environment Home with Family * ADLs Partial Dependent * Partial ADLs (Assistance needed) Medication Management * List name and contact numbers for known caregivers / representatives who currently or will assist patient after discharge: Ashwini Ocasio - - [phone] * Verbal permission to speak to the caregivers and representatives has been obtained from the patient. Yes * Community resources currently utilized None * Please name any agencies selected above. denies any services [facility] in 2018 [place] for home IVAB therapy * Additional services required to return to the preadmission environment? Yes * Can the patient safely return to the preadmission environment? Yes * Has this patient been hospitalized within the prior 30 days at any hospital? No Last DP export: 01/16/19 2:46 p Patient Name: ELIANE OCASIO Page 62825 at 1355 All edits/amendments must be made on the electronic document DICTATION DATE: 01/20/19 1356 BAG MACHINE OPERATOR: RICK 01/20/19 1354 RPT#: [id number] DC DATE: STATUS: ADM IN [facility] [address] [place] [address] END OF REPORT
--- NOTE | 2019-01-20 13:58 | NUR ---
PATIENT ON 4L/NC AT 96% PATIENT AMBULATED ON RA AND 02 SAT AT 88% PLACED BACK ON 4L/NC AND 02 SAT AT 95%
--- NOTE | 2019-01-20 14:53 | NUR ---
Nutrition follow-up: Diet: ADA consistent CHO PO intake 100% of last 3 meals labs reviewed Wt: 293# +BM PO intake remains good at this time' RDN following.
[2019-01-20 15:56] VITALS: BP 146/78
--- NOTE | 2019-01-20 16:39 | NUR ---
BLOOD SUGAR OF 243, 8UNITS OF INSULIN GIVEN PER S/S. PT UP TO SIDE OF BED, FIXING TO EAT DINNER. SEEMS A LITTLE SLEEPY THIS EVENING. ANSWERS QUESTIONS AND THEN CLOSES HIS EYES. PT DENIES ANY NEEDS AT THIS TIME. CALL LIGHT IN REACH, NAD NOTED.
--- NOTE | 2019-01-20 19:22 | NUR ---
PAIN MEDICATION GIVEN FOR PAIN LEVEL OF 8/10.
--- NOTE | 2019-01-20 20:00 | NUR ---
EVENING ROUNDS COMPLETED. VSS, WITH BP 174/92. BP MEDS GIVEN ALONGSIDE PM MEDS. WILL REASSESS. AAOX3, FAMILY VISITING AT BEDSIDE. NO S/S OF DISTRESS. O2 4L NC. PT STILL ON ENTERIC ISOLATION. SINUS TACH ON TELE. 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 DRESSING ON LEFT #2 TOE C/D/I. PT DENIES ANY PAIN AT THE SITE. PIV PATENT AND INTACT. WILL CTM. CL WITHIN REACH, BED IN LOW.
[2019-01-20 20:54] VITALS: BP 174/92
--- NOTE | 2019-01-20 22:44 | NUR ---
PT REQUESTED FOR HIS OXYCONTINE. NOTIFIED PT THAT MED WAS ALREADY GIVEN BY OUTGOING NURSE @ 1058. AND HE MAY NOT HAVE ANY OTHER DOSE AT THIS TIME. PT CURRENTLY IN BED. DENIES ANY FURTHER NEEDS. WILL CPOC.
[2019-01-21 00:49] VITALS: BP 154/79
[2019-01-21 04:42] VITALS: BP 158/80
[2019-01-21 06:07] LABS: BASOPHILS 0.2 % (0-2); EOSINOPHILS 1.4 % (0-7); HEMATOCRIT 32.5 % (42.0-54.0); HEMOGLOBIN 10.3 g/dL (13.5-17.5); IMMATURE GRANULOCYTES 3.9 % (0-5); LYMPHOCYTES 29.9 % (15-50); MCH 29.2 pg (26.0-34.0); MCHC 31.7 g/dL (31.0-37.0); MCV 92.1 fL (80.0-100.0); MEAN PLATELET VOLUME 10.6 fL (7.4-10.4); NEUTROPHILS 49.6 % (40-80); PLATELET COUNT 333 10x3/uL (130-400); RBC 3.53 10x6/uL (4.20-6.10); RDW 17.2 % (11.5-14.5); WBC 10.7 10x3/uL (4.8-10.8)
[2019-01-21 06:16] LABS: ALBUMIN 2.3 g/dL (3.4-5.0); ANION GAP 12.9 mmol/L (8-16); BILIRUBIN - TOTAL 0.55 mg/dL (0.2-1.3); CALCIUM 8.2 mg/dL (8.5-10.1); CARBON DIOXIDE 24.7 mmol/L (21.0-32.0); CREATININE - SERUM 1.1 mg/dL (0.6-1.3); POTASSIUM - SERUM 4.6 mmol/L (3.5-5.1); PROTEIN - SERUM 6.6 g/dL (6.4-8.2)
[2019-01-21 07:57] VITALS: BP 163/73
--- NOTE | 2019-01-21 08:52 | NUR ---
AM MEDS GIVEN AT THIS TIME. PT A/O X4, RESP EVEN BUT A LITTLE SHALLOW ON 4L. LT FA IV INFUSING NS AT 50CC/HR. TIME CLOCK INSPECTOR AT BEDSIDE, PT DENIES ANY NEEDS AT THIS TIME. CALL LIGHT IN REACH, NAD NOTED, WILL CONTINUE PLAN OF CARE.
--- NOTE | 2019-01-21 09:49 | NUR ---
Rehab Prescreening Consult recieved and the chart has been reviewed. He is managed Medicare and will require a preauth. He has a PT eval but will require an OT eval as well for their review. Once the evals and medical [id number] has been completed all infor viviane will be submitted for their review. Claudia Schumacher RN Clinical Liaison, Rehab
--- NOTE | 2019-01-21 11:47 | NUR ---
BLOOD SUGAR OF 282, 10UNITS OF INSULIN GIVEN PER S/S. WAITING ON VANC TROUGH TO RESULT TO HANG VANC. PT DENIES ANY NEEDS AT THIS TIME. CALL CECILIO IN REACH, TIM NOTED.
[2019-01-21 12:24] VITALS: BP 193/94
--- NOTE | 2019-01-21 13:26 | MORECARE ---
CASE MANAGEMENT DISCHARGE SUMMARY PATIENT: ELIANE OCASIO UNIT: [id number] ADM DATE: 01/13/19 AGE: 58 : 56 SEX: M ROOM/BED: D.1204 AUTHOR: MOE,DOC PHYSICIAN: REFERRING PHYSICIAN: CHRIST MCNALLY MD DATE OF SERVICE: 01/21/19 Discharge Plan Patient Name: ELIANE OCASIO Facility: [facility]:[place] : 1960 Planned Disposition: Home Anticipated Discharge Date: Discharge Date: Expected LOS: Initial Reviewer: [email or web address] Initial Review Date: 01/13/2019 Generated: 01/21/19 2:26 pm Comments DCP- Discharge Planning Updated by [id number]: Mariel Jay on 01/21/19 12:[address] CM spoke to the patient who reported he did not want to go to Inpatient Rehab and that he wanted to go home. CM offered to arrange home health services and he also refused HH. He stated he did not want home health either. Order received for walk test to see if patient needed home o2 at discharge. Patient stated he has a walker, cane, glucometer and did not feel he had any additional dme needs. He denied any problems obtaining his testing strips or diabetes supplies. CM will continue to follow and will assist as needed with dc plans/needs. Mariel Jay RN, [facility] DCP- Discharge Planning Updated by [id number]: Adriana Gimenez on 01/16/19 2:[address] CM spoke with patient's this early afternoon when she called to speak with the nurse. He had given permission to speak with his . Patient obtains his medications from [facility] in [facility]. He had ambulated w/ a cane but he may need surgery on his right shoulder and it had been painful to use the cane. He is fairly independent. She assist with meds.by filling his med box for the week. He has an 18 year old grandson that lives with them and assist. She states the discharge plan is to home w/ family. CM advised case management is available to assist if any discharge needs or home health care needs should arise. Patient is C Diff Positive. Placed on isolation today. DCP- Discharge Planning Updated by [id number]: Adriana Gimenez on 01/16/19 9:[address] CM VISITED W/ THE PATIENT THIS AM. HE WAS SITTING ON THE SIDE OF THE BED. HAD BEEN IN EARLIER AND HE WAS AMBULATING THE SHORT DISTANCE TO THE BATHROOM. HE HAS NASAL O2 AT 3/L. CM EXPLAINED MY ROLE. ADVISED I WOULD LIKE TO DO INITIAL ASSESSMENT FOR POTENTIAL DISCHARGE NEEDS. HE GAVE CM PERMISSION TO CONTINUE. THE PATIENT SEEMS LETHARGIC. SPEAKS VERY LOW AND SOFTLY. HAD SOME DIFFICULTY ANSWERING QUESTIONS. PCP- [facility]- PATIENT COULD NOT RECALL. STATED HE LIVED WITH HIS AND 18 YEAR OLD SON. HE GAVE A CONFUSING ANSWER REGARDING STEPS TO ENTER THE HOME. CM ASK PERMISSION TO SPEAK WITH HIS . HE CONSENTED. STATED SHE MAYBE AT WORK. CM TO CONTACT THE TO COMPLETE ASSESSMENT. DCP- Discharge Planning Updated by [id number]: Adriana Gimenez on 01/15/19 12:[address] CM TO SEE THE PATIENT FOR DISCHARGE PLANNING INITIAL ASSESSMENT. PATIENT WAS NOT IN HIS ROOM. HAVING A MRI OF HIS LEFT FOOT. WILL REVISIT. DCPIA - Discharge Planning Initial Assessment Updated by [id number]: Adriana Gimenez on 01/16/19 9:48 am * Is the patient Alert and Oriented? Yes * How many steps to enter\exit or inside your home? ramp * PCP DR Phan Barahona * Pharmacy Cannot recall * Preadmission Environment Home with Family * ADLs Partial Dependent * Partial ADLs (Assistance needed) Medication Management * List name and contact numbers for known caregivers / representatives who currently or will assist patient after discharge: Ashwini Ocasio - - [phone] * Verbal permission to speak to the caregivers and representatives has been obtained from the patient. Yes * Community resources currently utilized None * Please name any agencies selected above. denies any services [facility] in 2018 [place] for home IVAB therapy * Additional services required to return to the preadmission environment? Yes * Can the patient safely return to the preadmission environment? Yes * Has this patient been hospitalized within the prior 30 days at any hospital? No Coverage Notice Reviewer: [id number] - Mariel Jay Notice Issued Date-Time: 01/21/2019 9:35 Notice Type: IM Discharge Notice Notice Delivered To: Patient Relationship to Patient: Cost Manager Name: Delivery Method: HAND - Hand Delivered Renee Days: Prior Verbal Notification: Recipient Understood Notice: Recipient Signature: Med Rec Note Co-signed by Attending: Coverage Notice Comment: Last DP export: 01/20/19 12:55 pm Patient Name: ELIANE OCASIO Page 15385 at 1326 All edits/amendments must be made on the electronic document DICTATION DATE: 01/21/19 1326 PRINCIPAL SOFTWARE ARCHITECT: RICK 01/21/19 1326 RPT#: [id number] DC DATE: STATUS: ADM IN [facility] [address] [place] [address] END OF REPORT
--- NOTE | 2019-01-21 14:51 | NUR ---
60MG OF OXYCOTIN GIVEN FOR PAIN LEVEL O F 04/30. WENT OVER CARE OF PLAN WITH PT AND PT'S SPOUSE. PT DENIES ANY OTHER NEEDS AT THIS TIME. CALL LIGHT IN REACH, NAD NOTED, AMBAR ROLLINS TO MONITOR.
[2019-01-21 16:35] VITALS: BP 192/95
--- NOTE | 2019-01-21 18:44 | NUR ---
CALLED JOSE ANGEL HARRIS APRN AND NOTIFIED HIM ABOUT PT'S HIGH BP.
--- NOTE | 2019-01-21 19:48 | NUR ---
EVENING ROUNDS COMPLETED. VSS, AAOX3, NO S/S OF RESP DISTRESS. 02 @ 4L. PT STILL ON ENTERIC ISOLATION. PT DENIES ANY FURTHER NEED FOR COMFORT CARE. WILL CPOC. CL WITHIN REACH, BED IN LOW, SR UP X2.
[2019-01-21 20:00] VITALS: BP 178/97
[2019-01-22] VITALS (7 sets, daily range): BP systolic 145–184; BP diastolic 80–95
--- NOTE | 2019-01-22 01:05 | NUR ---
PT'S BP IS 184/95. IV PRN APRESOLINE 0.5ML OF 20MG/ML GIVEN PER PROVIDERS ORDER. PT VOICED THANKS IV VANC INFUSING. WILL CTM.
--- NOTE | 2019-01-22 02:45 | NUR ---
REASSESSED BP BP, NOW 162/79. WILL CTM. PT IN BED WITH EYES CLOSE, EASY TO AROUSE. CL WITHIN REACH.
--- NOTE | 2019-01-22 08:30 | NUR ---
PATIENT IN BED WITH NO COMPLAINTS AT THIS TIME. IV INTACT. CALL LIGHT WITHIN REACH.
[2019-01-22 08:55] LABS: BASOPHILS 0.2 % (0-2); EOSINOPHILS 1.6 % (0-7); HEMATOCRIT 33.2 % (42.0-54.0); HEMOGLOBIN 10.3 g/dL (13.5-17.5); IMMATURE GRANULOCYTES 3.6 % (0-5); LYMPHOCYTES 30.4 % (15-50); MCH 28.5 pg (26.0-34.0); MEAN PLATELET VOLUME 10.6 fL (7.4-10.4); MONOCYTES 10.8 % (2-11); NEUTROPHILS 53.4 % (40-80); PLATELET COUNT 367 10x3/uL (130-400); RBC 3.61 10x6/uL (4.20-6.10); RDW 16.8 % (11.5-14.5)
[2019-01-22 09:08] LABS: ALBUMIN 2.6 g/dL (3.4-5.0); ANION GAP 10.8 mmol/L (8-16); BILIRUBIN - TOTAL 0.66 mg/dL (0.2-1.3); CALCIUM 8.7 mg/dL (8.5-10.1); CARBON DIOXIDE 27.4 mmol/L (21.0-32.0); CREATININE - SERUM 1.1 mg/dL (0.6-1.3); POTASSIUM - SERUM 4.2 mmol/L (3.5-5.1); PROTEIN - SERUM 7.1 g/dL (6.4-8.2)
--- NOTE | 2019-01-22 10:30 | NUR ---
PATIENT O2 REMOVED AT THIS TIME TO GET A RESTING ROOM AIR SATURATION. NO DISTRESS OR PROBLEMS. IV INTACT. CALL LIGHT WITH REACH.
--- NOTE | 2019-01-22 11:00 | NUR ---
PATIENT RESTING ROOM AIR SAT 94%. O2 OFF. IV INTACT. CALL LIGHT WITHIN REACH.
--- NOTE | 2019-01-22 12:30 | NUR ---
PATIENT AMBULATED 376 FT. ON ROOM AIR. O2 SATS STAYED 96% CONTINUOUSLY WHILE AMBULATED. PATIENT SLIGHTY SOB, WITH NO DISTRESS. NO HOME O2 NEEDED. DOES NOT QUALIFY.
--- NOTE | 2019-01-22 15:30 | NUR ---
SPOKE WITH DR. LLOYD ABOUT PATIENT'S WALK TEST. EXPLAINED HE HAD NO PROBLEM WITH O2 SATS ON RA AND WANTS TO GO HOME. DR. LLOYD SAID HE IS SNOOZING NOW WE WILL LET HIM GO HOME TOMORROW.
--- NOTE | 2019-01-22 18:17 | NUR ---
PATIENT SITTING UP IN BED WITH IV INTACT, NO COMPLAINTS OR SIGNS OF DISTRESS. EYES OPEN WITH CALL LIGHT WITHIN REACH.
--- NOTE | 2019-01-22 20:00 | NUR ---
EVENING ROUNDS COMPLETED. VSS, AAOX4, NO S/S OF DISTRESS. PT ON RA 02. PIV LFA, WITH NS INFUSING @ 100. ENETERIC ISOLATION PRECAUTION IN PLACE. SINUS ON TELE. SORE TO 2ND TOE AND 3RD RIGHT TOE AMPUTATION NOTED. PT DENIES NEED FOR PAIN @ THIS TIME. WILL CPOC. CL WITHIN REACH, BED IN LOW, SR UP X2.
--- NOTE | 2019-01-23 00:10 | NUR ---
PT C/O OF BEEN ANXIOUS AND UNABLE TO SLEEP. PRN 10MG VALIUM GIVEN AT THIS TIME. PT VOICED THANKS. WILL CTM. CL WITHIN REACH.
[2019-01-23 04:00] VITALS: BP 154/90
--- NOTE | 2019-01-23 06:50 | NUR ---
FSBS 235 8 UNITS OF HUMALOG GIVEN. PT DENIES ANY FURTHER NEEDS FOR COMFORT CARE. WILL CPOC.
[2019-01-23 07:09] LABS: ALBUMIN 2.2 g/dL (3.4-5.0); ANION GAP 10.1 mmol/L (8-16); BILIRUBIN - TOTAL 0.67 mg/dL (0.2-1.3); CALCIUM 8.6 mg/dL (8.5-10.1); CARBON DIOXIDE 27.8 mmol/L (21.0-32.0); CREATININE - SERUM 1.3 mg/dL (0.6-1.3); POTASSIUM - SERUM 3.9 mmol/L (3.5-5.1); PROTEIN - SERUM 6.5 g/dL (6.4-8.2)
[2019-01-23 07:47] LABS: BASOPHILS 0.2 % (0-2); EOSINOPHILS 2.3 % (0-7); HEMOGLOBIN 9.5 g/dL (13.5-17.5); IMMATURE GRANULOCYTES 3.7 % (0-5); LYMPHOCYTES 32.3 % (15-50); MCH 28.6 pg (26.0-34.0); MCHC 31.7 g/dL (31.0-37.0); MCV 90.4 fL (80.0-100.0); MEAN PLATELET VOLUME 10.2 fL (7.4-10.4); MONOCYTES 11.4 % (2-11); NEUTROPHILS 50.1 % (40-80); PLATELET COUNT 362 10x3/uL (130-400); RBC 3.32 10x6/uL (4.20-6.10); RDW 16.5 % (11.5-14.5); WBC 8.6 10x3/uL (4.8-10.8)
[2019-01-23 08:21] VITALS: BP 145/82
[2019-01-23] MEDS ORDERED: NORVASC10 MG PO (08:21)
[2019-01-23] MEDS ORDERED: FLAGYL500 MG PO (08:21)
[2019-01-23] MEDS ORDERED: LIPITOR20 MG PO (08:22)
[2019-01-23] MEDS ORDERED: BENICAR20 MG PO (08:22)
--- NOTE | 2019-01-23 09:16 | MORECARE ---
CASE MANAGEMENT DISCHARGE SUMMARY PATIENT: ELIANE OCASIO UNIT: [id number] ADM DATE: 01/13/19 AGE: 58 : 56 SEX: M ROOM/BED: D.1204 AUTHOR: MOE,DOC PHYSICIAN: REFERRING PHYSICIAN: CHRIST MCNALLY MD DATE OF SERVICE: 01/23/19 Discharge Plan Patient Name: ELIANE OCASIO Facility: [facility]:[place] : 1960 Planned Disposition: Home Anticipated Discharge Date: Discharge Date: Expected LOS: Initial Reviewer: [id number] Initial Review Date: 01/13/2019 Generated: 01/23/19 10:16 am Comments DCP- Discharge Planning Updated by [id number]: Adeline Walters on 01/23/19 8:[address] Patient Name: ELIANE OCASIO Encounter No: [id number] : 1960 Primary Insurance: [facility] PF Anticipated DC Date: Planned Disposition: Home External Planned Provider: : DCP follow-up note: Patient and family in agreement with discharge plan. No changes to plan. I spoke with Abby (his primary nurse), he is on room air now. She states he had a walk test last night and does not need home oxygen. He has already signed an IMM. Case management will follow and assist as needed. Adeline Orrrinku DCP- Discharge Planning Updated by [id number]: Mariel Jay on 01/21/19 12:[address] CM spoke to the patient who reported he did not want to go to Inpatient Rehab and that he wanted to go home. CM offered to arrange home health services and he also refused HH. He stated he did not want home health either. Order received for walk test to see if patient needed home o2 at discharge. Patient stated he has a walker, cane, glucometer and did not feel he had any additional dme needs. He denied any problems obtaining his testing strips or diabetes supplies. CM will continue to follow and will assist as needed with dc plans/needs. Mariel Jay RN, [facility] DCP- Discharge Planning Updated by [id number]: Adriana Gimenez on 01/16/19 2:[address] CM spoke with patient's this early afternoon when she called to speak with the nurse. He had given permission to speak with his . Patient obtains his medications from [facility] in [facility]. He had ambulated w/ a cane but he may need surgery on his right shoulder and it had been painful to use the cane. He is fairly independent. She assist with meds.by filling his med box for the week. He has an 18 year old grandson that lives with them and assist. She states the discharge plan is to home w/ family. CM advised case management is available to assist if any discharge needs or home health care needs should arise. Patient is C Diff Positive. Placed on isolation today. DCP- Discharge Planning Updated by [id number]: Adriana Gimenez on 01/16/19 9:[address] CM VISITED W/ THE PATIENT THIS AM. HE WAS SITTING ON THE SIDE OF THE BED. HAD BEEN IN EARLIER AND HE WAS AMBULATING THE SHORT DISTANCE TO THE BATHROOM. HE HAS NASAL O2 AT 3/L. CM EXPLAINED MY ROLE. ADVISED I WOULD LIKE TO DO INITIAL ASSESSMENT FOR POTENTIAL DISCHARGE NEEDS. HE GAVE CM PERMISSION TO CONTINUE. THE PATIENT SEEMS LETHARGIC. SPEAKS VERY LOW AND SOFTLY. HAD SOME DIFFICULTY ANSWERING QUESTIONS. PCP- [facility]- PATIENT COULD NOT RECALL. STATED HE LIVED WITH HIS AND 18 YEAR OLD SON. HE GAVE A CONFUSING ANSWER REGARDING STEPS TO ENTER THE HOME. CM ASK PERMISSION TO SPEAK WITH HIS . HE CONSENTED. STATED SHE MAYBE AT WORK. CM TO CONTACT THE TO COMPLETE ASSESSMENT. DCP- Discharge Planning Updated by [id number]: Adriana Gimenez on 01/15/19 12:[address] CM TO SEE THE PATIENT FOR DISCHARGE PLANNING INITIAL ASSESSMENT. PATIENT WAS NOT IN HIS ROOM. HAVING A MRI OF HIS LEFT FOOT. WILL REVISIT. DCPIA - Discharge Planning Initial Assessment Updated by [id number]: Adriana Gimenez on 01/16/19 9:48 am * Is the patient Alert and Oriented? Yes * How many steps to enter\exit or inside your home? ramp * PCP DR Phan Barahona * Pharmacy Cannot recall * Preadmission Environment Home with Family * ADLs Partial Dependent * Partial ADLs (Assistance needed) Medication Management * List name and contact numbers for known caregivers / representatives who currently or will assist patient after discharge: Ashwini Ocasio - - [phone] * Verbal permission to speak to the caregivers and representatives has been obtained from the patient. Yes * Community resources currently utilized None * Please name any agencies selected above. denies any services [facility] in 2018 [place] for home IVAB therapy * Additional services required to return to the preadmission environment? Yes * Can the patient safely return to the preadmission environment? Yes * Has this patient been hospitalized within the prior 30 days at any hospital? No Coverage Notice Reviewer: [id number] - Mariel Jay Notice Issued Date-Time: 01/21/2019 9:35 Notice Type: IM Discharge Notice Notice Delivered To: Patient Relationship to Patient: Handy Man Name: Delivery Method: HAND - Hand Delivered Renee Days: Prior Verbal Notification: Recipient Understood Notice: Recipient Signature: Med Rec Note Co-signed by Attending: Coverage Notice Comment: Last DP export: 01/21/19 12:26 pm Patient Name: ELIANE OCASIO Page [id number] at 0916 All edits/amendments must be made on the electronic document DICTATION DATE: 01/23/19914 RN DIALYSIS: RICK 01/23/19914 RPT#: [id number] DC DATE: STATUS: ADM IN [facility] [address] [place] [address] END OF REPORT
--- NOTE | 2019-01-23 14:35 | NUR ---
PT RESTING IN BED WAITING FOR DISCHARGE, DENIES NEEDS. WCTM.
--- NOTE | 2019-01-23 14:53 | NUR ---
PT LEFT FA IV DC'D TIP INTACT.
--- NOTE | 2019-01-23 15:28 | NUR ---
PT DISCHARGE INSTRUCTIONS REV'D AND PT AND PT FAMILY STATE UNDERSTANDING.
--- NOTE | 2019-01-23 15:41 | NUR ---
PT ESCORTED OUT VIA WHEELCHAIR BY HOSPITAL STAFF. PT IS DISCHARGING HOME WITH FAMILY AT THIS TIME.
--- NOTE | 2019-01-23 17:30 | MORECARE ---
CASE MANAGEMENT DISCHARGE SUMMARY PATIENT: ELIANE OCASIO UNIT: [id number] ADM DATE: 01/13/19 AGE: 58 : 56 SEX: M ROOM/BED: D.1204 AUTHOR: MOE,DOC PHYSICIAN: REFERRING PHYSICIAN: CHRIST MCNALLY MD DATE OF SERVICE: 01/23/19 Discharge Plan Patient Name: ELIANE OCASIO Facility: [facility]:[place] : 1960 Planned Disposition: Home Anticipated Discharge Date: Discharge Date: 01/23/2019 Expected LOS: Initial Reviewer: [id number] Initial Review Date: 01/13/2019 Generated: 01/23/19 6:30 pm Comments DCP- Discharge Planning Updated by [id number]: Adeline Walters on 01/23/19 8:[address] Patient Name: ELIANE OCASIO Encounter No: [id number] : 1960 Primary Insurance: [employer] [facility] PFFS Anticipated DC Date: Planned Disposition: Home External Planned Provider: : DCP follow-up note: Patient and family in agreement with discharge plan. No changes to plan. I spoke with Abby (his primary nurse), he is on room air now. She states he had a walk test last night and does not need home oxygen. He has already signed an IMM. Case management will follow and assist as needed. Adeline Walters DCP- Discharge Planning Updated by [email or web address]: Mariel Jay on 01/21/19 12:[address] CM spoke to the patient who reported he did not want to go to Inpatient Rehab and that he wanted to go home. CM offered to arrange home health services and he also refused HH. He stated he did not want home health either. Order received for walk test to see if patient needed home o2 at discharge. Patient stated he has a walker, cane, glucometer and did not feel he had any additional dme needs. He denied any problems obtaining his testing strips or diabetes supplies. CM will continue to follow and will assist as needed with dc plans/needs. Mariel Jay RN, [facility] DCP- Discharge Planning Updated by [id number]: Adriana Gimenez on 01/16/19 2:[address] CM spoke with patient's this early afternoon when she called to speak with the nurse. He had given permission to speak with his . Patient obtains his medications from [facility] in [place]. He had ambulated w/ a cane but he may need surgery on his right shoulder and it had been painful to use the cane. He is fairly independent. She assist with meds.by filling his med box for the week. He has an 18 year old grandson that lives with them and assist. She states the discharge plan is to home w/ family. CM advised case management is available to assist if any discharge needs or home health care needs should arise. Patient is C Diff Positive. Placed on isolation today. DCP- Discharge Planning Updated by [id number]: Adriana Gimenez on 01/16/19 9:[address] CM VISITED W/ THE PATIENT THIS AM. HE WAS SITTING ON THE SIDE OF THE BED. HAD BEEN IN EARLIER AND HE WAS AMBULATING THE SHORT DISTANCE TO THE BATHROOM. HE HAS NASAL O2 AT 3/L. CM EXPLAINED MY ROLE. ADVISED I WOULD LIKE TO DO INITIAL ASSESSMENT FOR POTENTIAL DISCHARGE NEEDS. HE GAVE CM PERMISSION TO CONTINUE. THE PATIENT SEEMS LETHARGIC. SPEAKS VERY LOW AND SOFTLY. HAD SOME DIFFICULTY ANSWERING QUESTIONS. PCP- [facility]- PATIENT COULD NOT RECALL. STATED HE LIVED WITH HIS AND 18 YEAR OLD SON. HE GAVE A CONFUSING ANSWER REGARDING STEPS TO ENTER THE HOME. CM ASK PERMISSION TO SPEAK WITH HIS . HE CONSENTED. STATED SHE MAYBE AT WORK. CM TO CONTACT THE TO COMPLETE ASSESSMENT. DCP- Discharge Planning Updated by [email or web address]: Adriana Gimenez on 01/15/19 12:[address] CM TO SEE THE PATIENT FOR DISCHARGE PLANNING INITIAL ASSESSMENT. PATIENT WAS NOT IN HIS ROOM. HAVING A MRI OF HIS LEFT FOOT. WILL REVISIT. DCPIA - Discharge Planning Initial Assessment Updated by [id number]: Adriana Gimenez on 01/16/19 9:48 am * Is the patient Alert and Oriented? Yes * How many steps to enter\exit or inside your home? ramp * PCP DR Phan Barahona * Pharmacy Cannot recall * Preadmission Environment Home with Family * ADLs Partial Dependent * Partial ADLs (Assistance needed) Medication Management * List name and contact numbers for known caregivers / representatives who currently or will assist patient after discharge: Ashwini Ocasio - - [phone] * Verbal permission to speak to the caregivers and representatives has been obtained from the patient. Yes * Community resources currently utilized None * Please name any agencies selected above. denies any services [facility] in 2018 [place] for home IVAB therapy * Additional services required to return to the preadmission environment? Yes * Can the patient safely return to the preadmission environment? Yes * Has this patient been hospitalized within the prior 30 days at any hospital? No Coverage Notice Reviewer: [id number] Ishan Jay Notice Issued Date-Time: 01/21/2019 9:35 Notice Type: IM Discharge Notice Notice Delivered To: Patient Relationship to Patient: Master Scheduler Name: Delivery Method: HAND - Hand Delivered Renee Days: Prior Verbal Notification: Recipient Understood Notice: Recipient Signature: Med Rec Note Co-signed by Attending: Coverage Notice Comment: Last DP export: 01/23/19 8:16 am Patient Name: ELIANE OCASIO Page 13925 at 1730 All edits/amendments must be made on the electronic document DICTATION DATE: 01/23/191728 FIELD SUPPORT REPRESENTATIVE: RICK 01/23/191728 RPT#: [id number] DC DATE:01/23/19 STATUS: DIS IN [facility] [address] [place] [address] END OF REPORT
== END 2019-01-23 15:41 | disposition home or self-care (01) | DRG 808 ==
LOC: D.ER 13:53 → D.M3 18:37 → D.EDHOLD 18:37 → D.M3 18:52
PROVIDERS: Family Medicine; Internal Medicine Hematology & Oncology; Internal Medicine Nephrology; Student in an Organized Health Care Education/Training Program; ADMIT Family Medicine; ATTEND Family Medicine
DX: D70.9 Neutropenia, unspecified (principal); R53.2 Functional quadriplegia; J18.9 Pneumonia, unspecified organism; A41.9 Sepsis, unspecified organism; D65 Disseminated intravascular coagulation [defibrination syndrome]; G93.41 Metabolic encephalopathy; N17.9 Acute kidney failure, unspecified; N39.0 Urinary tract infection, site not specified; E87.1 Hypo-osmolality and hyponatremia; A04.72 Enterocolitis due to Clostridium difficile, not specified as recurrent; B96.20 Unspecified Escherichia coli [E. coli] as the cause of diseases classified elsewhere; R50.81 Fever presenting with conditions classified elsewhere; M06.9 Rheumatoid arthritis, unspecified; Z79.899 Other long term (current) drug therapy; E11.42 Type 2 diabetes mellitus with diabetic polyneuropathy; E11.621 Type 2 diabetes mellitus with foot ulcer; L97.509 Non-pressure chronic ulcer of other part of unspecified foot with unspecified severity